=== PATIENT | female | born 1950 | race Caucasian/White ===

== ENCOUNTER 2021-12-11 14:00 | Outpatient (RCR) | payer MEDICARE, SELFPAY | END 2021-12-24 11:25 | disposition home or self-care (01) | LOC: HO.PTCHIC 14:00 | PROVIDERS: PCP Internal Medicine; Visit Provider Internal Medicine | DX: M54.50 Low back pain, unspecified (principal) | CPT/HCPCS: 97110; 97112; 97140; 97150; 97161; 97530 ==

== ENCOUNTER 2022-11-14 13:51 | Emergency (ER) | payer MEDICARE, SELFPAY ==
[2022-11-14 14:01] VITALS: BP 153/85; PULSE 99; RESP 16; TEMP 37.2; O2SAT 99; BMI 30.2
--- NOTE | 2022-11-14 14:01 | ED.EAR ---
HPI - Ear Problem General Chief complaint: Ear Problems Stated complaint: pressure/pain in ears Time Seen by Provider: 11/14/22 14:02 Source: patient, RN notes reviewed and old records reviewed Mode of arrival: ambulatory History of Present Illness HPI Narrative: 72-year-old female with no sig past medical history presenting to the ED complaining of bilateral ear pain/pressure x 2 days worse on the left. Denies known fever, chills, sore throat, cough, SOB, hearing loss, drainage from ear, recent swimming MD Complaint: ear pain Location: bilateral Related Data Home Medications Medication Instructions Recorded Confirmed amlodipine 5 mg tablet 5 mg PO DAILY 09/25/22 09/25/22 atorvastatin 20 mg tablet 20 mg PO DAILY 09/25/22 09/25/22 lisinopril 20 mg tablet 20 mg PO DAILY 09/25/22 09/25/22 metformin 750 mg tablet,extended 1,500 mg PO DAILY 09/25/22 09/25/22 release 24 hr Previous Rx's Medication Instructions Recorded erythromycin 5 mg/gram (0.5 %) eye 0.5 inch ophthalmic (eye) Q4H #3.5 09/25/22 ointment grams amoxicillin 875 mg-potassium 1 tab PO BID 7 days #14 tabs 11/14/22 clavulanate 125 mg tablet Allergies Allergy/AdvReac Type Severity Reaction Status Date / Time bee pollen [bee stings] Allergy Hives Verified 11/14/22 14:05 Review of Systems Review of Systems: Constitutional: No Fever, No Chills ENT/Mouth: + Ear Pain, No Nasal Congestion, No Sinus Pain, No Hoarseness, No sore throat, No Rhinorrhea, No Swallowing Difficulty Cardiovascular: No Chest Pain, No SOB Respiratory: No Cough, No Sputum, No Wheezing Gastrointestinal: No Nausea, No Vomiting, No Diarrhea, No Constipation, No Abdominal pain Musculoskeletal: No joint pain, No Myalgias, No Joint Swelling Skin: No Skin Lesions, No rash Neuro: No Weakness Yes all other systems are reviewed and are negative Constitutional: Constitutional: Reports as per [facility] Past Medical History Attestation statement: The following information was validated with the patient. Source: old records reviewed Physical Exam Vital Signs: Vital Signs: Last Vital Signs Temp 99 F 11/14/22 14:01 Pulse 99 11/14/22 14:01 Resp 16 11/14/22 14:01 BP 153/85 H 11/14/22 14:01 Pulse Ox 99 11/14/22 14:01 O2 Del Method Room Air 11/14/22 14:01 BMI result Body Mass Index 30.2 Const: General: cooperative, healthy appearing and no acute distress Orientation/consciousness: patient oriented x3 Limitations: no limitations HEENT: Head: Yes normal to inspection and Yes atraumatic Ears: hearing grossly normal bilaterally, external ears normal, mastoids normal and TM abnormal dull on the right and with fluid behind the TM on the left General nose exam: Normal external nose present Face and sinus: Yes normal facial exam Throat: Yes posterior oropharynx normal, Yes tonsils normal, Yes uvula midline, No peritonsillar mass, No uvula laterally displaced and No uvular edema Eyes: General: appearance normal, both eyes and all related structures EOM: EOMs intact bilaterally Neck: Neck: Yes normal visual inspection and Yes no meningeal signs Resp: Effort & Inspection: normal respiratory effort and no respiratory distress Auscultation: clear to auscultation bilaterally Cardio: Rate: regular rate Heart sounds: S1 normal heart sound present and S2 normal heart sound present : General: Yes no CVA tenderness Back/Spine/Pelvis: Back: no CVA tenderness Skin: Rashes: no rashes Wounds: no wounds Neuro: General: patient oriented x3, tone normal and no meningeal signs Gait exam (Neuro): Normal gait present Extrem: General: Yes normal to inspection Medical Decision Making Medical Decision Making MDM Narrative: 72-year-old female with no sig past medical history presenting to the ED complaining of bilateral ear pain/pressure x 2 days worse on the left. On exam vital signs stable, NAD, nontoxic appearing, right TM dull, left TM with fluid. Mastoids WNL. Oropharynx WNL. Concern for otitis media. Low suspicion for mastoiditis, chronic otitis externa, or [employer] Plan: P.o. antibiotics Please refer to course for remaining clinical decision making, interpretation of labs/imaging results, and discussions with consultants and/or family members. Differential Diagnosis Differential Diagnoses: The differential diagnosis associated with the presentation includes As above Lab Data [facility] Lab Attestation statement: I reviewed the patient's lab results. Radiology Impression Discussion of test interpretation with radiology: I have reviewed the radiologist's reading. External Record Review External record reviewed: Inpatient record, Office record, Outpatient record, Prior outpatient labs, Prior outpatient radiology, Primary care record and Outside ED record Tests considered The following testing was considered but not selected: As above Discharge Plan Discharge Clinical Impression: Otitis media Patient Disposition: Home, Self-Care Instructions: Ear Infection (ED) Additional Instructions: You have an internal ear infection Augmentin is an antibiotic please take prescribed If symptoms persist or worsen you develop hearing loss, fever unresolved medications or persistent/worsening pain return to the ED Follow-up with her doctor Prescriptions: New amoxicillin-pot clavulanate 875-125 mg tablet 1 tab PO BID 7 Days Qty: 14 0RF No Action metformin 750 mg tablet extended release 24 hr 1,500 mg PO DAILY lisinopril 20 mg tablet 20 mg PO DAILY amlodipine 5 mg tablet 5 mg PO DAILY atorvastatin 20 mg tablet 20 mg PO DAILY erythromycin 5 mg/gram (0.5 %) ointment 0.5 inch ophthalmic (eye) Q4H Qty: 3.5 1RF Referrals: Physician,Unknown J [Primary Care Provider] -
== END 2022-11-14 14:15 | disposition home or self-care (01) ==
LOC: HO.ED 14:09
PROVIDERS: Emergency Provider Emergency Medicine
DX: H66.92 Otitis media, unspecified, left ear (principal); H92.03 Otalgia, bilateral; Z79.899 Other long term (current) drug therapy
CPT/HCPCS: 99282; 99283

== ENCOUNTER 2023-02-05 22:17 | Emergency (ER) | payer MEDICARE, SELFPAY ==
[2023-02-05 22:19] VITALS: BP 170/83; PULSE 73; RESP 18; TEMP 36.6; O2SAT 96; BMI 32.6
--- NOTE | 2023-02-05 22:21 | ED.GENADULT ---
HPI - General Adult General Chief complaint: Skin/Abscess/Foreign Body Stated complaint: 10-15 small lumps inner thigh. painful Time Seen by Provider: 02/06/23 06:48 Source: patient Mode of arrival: ambulatory History of Present Illness HPI narrative: This is a 72-year-old female with history of venous varicosity and prior vein stripping/sclerosing a number of years ago who presents with tenderness to the left medial thigh and noted erythema along the vein. She denies any fevers or chills or any pain on standing or walking. Related Data Home Medications Medication Instructions Recorded Confirmed amlodipine 5 mg tablet 5 mg PO DAILY 09/25/22 09/25/22 atorvastatin 20 mg tablet 20 mg PO DAILY 09/25/22 09/25/22 lisinopril 20 mg tablet 20 mg PO DAILY 09/25/22 09/25/22 metformin 750 mg tablet,extended 1,500 mg PO DAILY 09/25/22 09/25/22 release 24 hr Previous Rx's Medication Instructions Recorded erythromycin 5 mg/gram (0.5 %) eye 0.5 inch ophthalmic (eye) Q4H #3.5 09/25/22 ointment grams amoxicillin 875 mg-potassium 1 tab PO BID 7 days #14 tabs 11/14/22 clavulanate 125 mg tablet Allergies Allergy/AdvReac Type Severity Reaction Status Date / Time bee pollen [bee stings] Allergy Hives Verified 11/14/22 14:05 Review of Systems Review of Systems: Pertinent positives and negatives as stated in HPI PMFSH Past Medical History Source: nursing notes reviewed Social History Social History Advance Directives: No Advance Directives Information Provided: Yes Physical Exam ED Vital Signs: Vital Signs - 24 hr 02/05/23 22:19 02/06/23 02:18 02/06/23 06:54 Temperature 97.9 F 97.6 F 98.1 F Pulse Rate 73 58 70 Respiratory Rate 18 17 18 Blood Pressure 170/83 H 150/74 H 149/68 H Pulse Oximetry 96 99 98 Oxygen Delivery Method Room Air Room Air Room Air BMI result Body Mass Index 32.6 VITAL SIGNS: Reviewed. GENERAL: Well developed, well nourished, in no acute distress. HEAD: Normocephalic/atraumatic EYES: PERRLA, EOMI LUNGS: Normal breath sounds. No adventitious sounds or accessory muscle use. SpO2<98> CARDIOVASCULAR: Regular rate and rhythm without noted murmurs, no JVD or lower extremity edema. ABDOMEN: Soft, non-tender, non-distended with bowel sounds. MUSCULOSKELETAL: No tenderness, deformities, or effusions noted on gross inspection. EXTREMITIES: No cyanosis, clubbing or edema; LEFT LOWER EXTREMITY: There is obvious varicosity the medial thigh vessel with dilation and slight erythema with tenderness on palpation SKIN: Inspection of the skin reveals no rashes NEUROLOGIC: Alert and oriented x 4. Strength and sensation to light touch were grossly intact x 4. Course Course Course Narrative: This is a rapid medical exam: Additional HPI, ROS, PE not included below will be deferred to primary provider. Patient is a 72-year-old female presenting to the emergency department with erythematous and tender varicose vein to left medial thigh. States she had a vascular procedure to this area approximately 3 years prior. Area is erythematous, firm and tender. Denies recent fevers. Denies chest pain or shortness of breath. Denies any other complaints. Plan: labs Medications Administered Discontinued Medications Generic Name Dose Route Start Last Admin Trade Name Freq PRN Reason Stop Dose Admin Acetaminophen 975 mg 02/06/23 07:11 02/06/23 07:22 Acetaminophen 325 Mg Tablet PO 02/06/23 07:12 975 mg ONCE ONE Administration Ibuprofen 400 mg 02/06/23 07:11 02/06/23 07:23 Ibuprofen 400 Mg Tablet PO 02/06/23 07:12 400 mg ONCE ONE Administration Medical Decision Making Medical Decision Making MDM Narrative: 72-year-old female with history and clinical presentation, DDX: Cellulitis, thrombophlebitis, no clinical suspicion for DVT. I reviewed all investigations and there is no leukocytosis left shift, no anemia or probable cytopenia, ESR is within normal limits and clinical findings are inconsistent with a cellulitis as the erythema tracks very specifically to the vein in question. Chemistry indices show no derangements electrolytes and no MEEK there is an elevated BUN of unclear significance as there are no prior laboratory testings to compare. CRP is within normal limits and once again this does not appear to be a vasculitis or cellulitis and given the distribution and appearance as well as history this is not consistent with a DVT. Patient was provided with instructions on compression dressing in addition to the use of NSAIDs for resolution of the superficial thrombophlebitis. She was also instructed follow-up with primary care provider on Wednesday morning. Differential Diagnosis Differential Diagnoses: The differential diagnosis associated with the presentation includes Please see the discussion above Admission/Observation Consideration of admission/observation: Escalation of care including admission/observation considered Please see the discussion above Lab Data MDM Lab Attestation statement: I reviewed the patient's lab results. Please see the discussion above 02/05/23 22:33 02/05/23 22:33 Labs: Lab Results 02/05/23 02/05/23 02/05/23 Range/Units 22:33 22:33 22:33 WBC 8.0 (4.8-10.8) X10*3/uL RBC 4.47 (4.20-5.50) X10*6/uL Hgb 12.7 (12.0-16.0) g/dl Hct 38.8 (37.0-47.0) % MCV 86.8 (80.0-98.0) fL MCH 28.4 (27.0-33.0) pg MCHC 32.7 (31.0-35.0) g/dl RDW 13.6 (11.0-16.0) % Plt Count 297 (160-400) X10*3/uL MPV 10.1 (9.4-12.3) fL Immature Gran % (Auto) 0.5 H (0.0-0.4) % Neut % (Auto) 50.1 (45-73) % Lymph % (Auto) 29.1 (20-40) % Mellette % (Auto) 7.2 (2-11) % Eos % (Auto) 12.4 H (0-4) % Baso % (Auto) 0.7 (0-2) % Lymph # (Auto) 2.3 (1.2-4.9) X10*3/uL Mellette # (Auto) 0.6 (0.1-1.2) X10*3/uL Eos # (Auto) 1.0 H (0.0-0.4) X10*3/uL Baso # (Auto) 0.1 (0.0-0.2) X10*3/uL Abs Immat Gran (auto) 0.04 H (0.00-0.03) X10*3/uL Absolute Neuts (auto) 4.0 (2.0-8.3) x10*3/uL Absolute Nucleated RBC 0.000 (0.0-0.012) X10*3/uL Nucleated RBC % (auto) 0.0 (0.0-0.2) /100WBC ESR 8 (0-20) MM/HR Sodium 140 (135-145) mmol/L Potassium 4.2 (3.3-5.1) mmol/L Chloride 106 (96-108) mmol/L Carbon Dioxide 19 L (22-29) mmol/L Anion Gap 19 (12-20) BUN 31 H (9-16) mg/dL Creatinine 1.18 (0.5-1.4) mg/dL Estim Creat Clear Calc 39.6 Estimated GFR 45 Random Glucose 153 H (60-115) mg/dL Calcium 9.4 (8.4-10.2) mg/dL C-Reactive Protein 0.22 (< or = 0.50) mg/dL Chronic Conditions Patient?s care impacted by: Diabetes Discharge Plan Discharge Clinical Impression: Thrombophlebitis Patient Disposition: Home, Self-Care Instructions: Superficial Thrombophlebitis (ED), How to Use an Elastic Bandage (ED) Additional Instructions: 1. Recommend Tylenol 1000 mg, orally, every 6 hours as needed for pain control. Do not exceed 4000 mg within 24 hours. 2. Ibuprofen 400 mg, orally with milk or food, every 6 hours as needed for pain control. 3. Please attempt to keep the Javier wrap in place as this will assist to completely resolve the thrombophlebitis. 4. Please follow-up with your primary care provider on Wednesday morning. Return to the ER for any worsening symptoms. Prescriptions: No Action amoxicillin-pot clavulanate 875-125 mg tablet 1 tab PO BID 7 Days Qty: 14 0RF metformin 750 mg tablet extended release 24 hr 1,500 mg PO DAILY lisinopril 20 mg tablet 20 mg PO DAILY amlodipine 5 mg tablet 5 mg PO DAILY atorvastatin 20 mg tablet 20 mg PO DAILY erythromycin 5 mg/gram (0.5 %) ointment 0.5 inch ophthalmic (eye) Q4H Qty: 3.5 1RF Referrals: EDGAR ADAMSON [Primary Care Provider] - Interventions: ED Discharge Assessment Last Done: 02/06/23 07:27 Discharge Date/Time: 02/06/23 07:28
[2023-02-05 22:40] LABS: Basophils Absolute Auto 0.1 X10*3/uL (0.0-0.2); Basophils Percent Auto 0.7 % (0-2); Eosinophils Percent Auto 12.4 % (0-4); Hematocrit 38.8 % (37.0-47.0); Hemoglobin 12.7 g/dl (12.0-16.0); Imm Gran Abs Auto 0.04 X10*3/uL (0.00-0.03); Imm Gran Pct Auto 0.5 % (0.0-0.4); Lymphocytes Absolute Auto 2.3 X10*3/uL (1.2-4.9); Lymphocytes Percent Auto 29.1 % (20-40); MANUAL DIFF FLAG NO; Mean Corpuscular HGB Conc 32.7 g/dl (31.0-35.0); Mean Corpuscular Hemoglobin 28.4 pg (27.0-33.0); Mean Corpuscular Volume 86.8 fL (80.0-98.0); Mean Platelet Volume 10.1 fL (9.4-12.3); Monocytes Absolute Auto 0.6 X10*3/uL (0.1-1.2); Monocytes Percent Auto 7.2 % (2-11); Neutrophils Percent Auto 50.1 % (45-73); Platelet Count 297 X10*3/uL (160-400); Red Blood Count 4.47 X10*6/uL (4.20-5.50); Red Cell Distribution Width 13.6 % (11.0-16.0)
[2023-02-05 22:57] LABS: Anion Gap 19 (12-20); Blood Urea Nitrogen 31 mg/dL (9-16); C Reactive Protein 0.22 mg/dL (< or = 0.50); Calcium 9.4 mg/dL (8.4-10.2); Carbon Dioxide 19 mmol/L (22-29); Chloride 106 mmol/L (96-108); Creatinine Clr Calc Pharmacy 39.6; Estimated Glomerular Filt Rate 45; Glucose Random 153 mg/dL (60-115); Potassium 4.2 mmol/L (3.3-5.1); Sodium 140 mmol/L (135-145)
[2023-02-05 23:17] LABS: Erythrocyte Sedimentation Rate 8 MM/HR (0-20)
[2023-02-06 02:18] VITALS: BP 150/74; PULSE 58; RESP 17; TEMP 36.4; O2SAT 99
[2023-02-06 06:54] VITALS: BP 149/68; PULSE 70; RESP 18; TEMP 36.7; O2SAT 98
[2023-02-06] MEDS: Acetaminophen 325 MG TABLET 975 MG PO (07:22)
[2023-02-06] MEDS: Ibuprofen 400 MG TABLET PO (07:23)
== END 2023-02-06 07:28 | disposition home or self-care (01) ==
PROVIDERS: Registered Nurse Emergency; Emergency Provider Student in an Organized Health Care Education/Training Program; PCP Internal Medicine
DX: I80.3 Phlebitis and thrombophlebitis of lower extremities, unspecified (principal); Z79.899 Other long term (current) drug therapy
CPT/HCPCS: 36415; 80048; 85025; 85652; 86140; 99283; 99284

== ENCOUNTER 2023-04-06 12:56 | Outpatient (AMB) | payer MEDICARE, SELFPAY ==
[2023-04-06 13:10] VITALS: BP 150/68; PULSE 78; TEMP 37.4; O2SAT 97; BMI 31.9
--- NOTE | 2023-04-06 13:10 | AM.OFFWIN_ITS ---
Intake Vital Signs 04/06/23 13:10 Height 5 ft 1 in Weight 169 lb BMI 31.9 BP 150/68 H Blood Pressure Location Rt brachial Position Sitting Pulse 78 Pulse Source Pulse Oximeter Temp 99.3 F Temp Source Temporal Artery Scan Pulse Oximetry (%) 97 Intake Visit Reasons: EP Flu like symptoms (masked) Intake Note: pt is here for c/o headache, pressure in bilateral ear, chills, cough. Patient Tobacco Use Status: Never used Tobacco Allergies bee pollen [bee stings] Allergy (Verified 04/06/23 13:44) Hives Medication List - Last Reconciled 04/06/23 by Venkat Giron MD amlodipine 5 mg PO DAILY atorvastatin 20 mg PO DAILY azithromycin take 500 mg today (day 1), then 250 mg for 4 days (days 2-5) PO codeine-guaifenesin 10-100 mg/5 mL 5 mL PO Q6H PRN lisinopril 20 mg PO DAILY metformin ER 1,500 mg PO DAILY Do you need a note to return to daycare/school/sports/work: Yes HPI EP Flu like symptoms (masked) HPI Details Patient presents for a sick visit. Reporting symptoms of sinus congestion, sore throat and difficulty swallowing. Low-grade fever. No family member is sick. No recent travel. Patient reports symptoms of malaise and fatigue. [facility] Social History Patient Tobacco Use Status: Never used Tobacco Physical Exam Vital Signs: Last Vital Signs Temp 99.3 F 04/06/23 13:10 Pulse 78 04/06/23 13:10 BP 150/68 H 04/06/23 13:10 Pulse Ox 97 04/06/23 13:10 BMI result Body Mass Index 31.9 Const General: cooperative and healthy appearing Nutritional Appearance: well nourished Orientation/consciousness: patient oriented x3 Limitations: no limitations HEENT Head: Yes normal to inspection Eyes General: appearance normal, both eyes and all related structures Neck Neck: Yes normal visual inspection Chest Chest palpation & inspection: normal palpation of entire chest wall Resp Effort & Inspection: normal respiratory effort Neuro General: patient oriented x3 Assessment & Plan Assessment & Plan (1) Upper respiratory tract infection: Code(s): J06.9 - Acute upper respiratory infection, unspecified Plan: Antibiotics ordered. Increase fluid intake. Tylenol for aches and pains. If symptoms worsen, follow-up here for a recheck. Will call with results of COVID. Medications: New codeine-guaifenesin 10-100 mg/5 mL 5 mL PO Q6H PRN 120 mL 0RF allergy symptoms azithromycin take 500 mg today (day 1), then 250 mg for 4 days (days 2-5) PO 6 tabs 0RF Coding Level of Care Code Est Pt Level 3 (18436) Diagnoses Upper respiratory tract infection J06.9
== END 2023-04-06 13:54 | disposition home or self-care (01) ==
PROVIDERS: PCP Internal Medicine; Visit Provider Internal Medicine
DX: J06.9 Acute upper respiratory infection, unspecified (principal)
CPT/HCPCS: 99213

== ENCOUNTER 2023-04-06 13:48 | Outpatient (REF) | payer MEDICARE, SELFPAY ==
[2023-04-06 17:39] LABS: Influenza A PCR NEGATIVE (Negative); Influenza B PCR NEGATIVE (Negative); Resp Syncy Virus RNA Qual PCR NEGATIVE (Negative); SARS COV2 PCR INHOUSE POSITIVE (Negative)
== END 2023-04-06 13:49 | disposition home or self-care (01) ==
LOC: HO.LAB 13:48
PROVIDERS: Visit Provider Internal Medicine
DX: Z20.822 Contact with and (suspected) exposure to COVID-19 (principal); R43.9 Unspecified disturbances of smell and taste
CPT/HCPCS: 0241U

== ENCOUNTER 2024-06-15 10:35 | Outpatient (AMB) | payer MEDICARE, SELFPAY ==
[2024-06-15 11:17] VITALS: BP 130/80; PULSE 60; O2SAT 99; BMI 28.0
--- NOTE | 2024-06-15 11:17 | AM.OFFWIN_ITS ---
Intake Vital Signs 06/15/24 11:17 Height 5 ft 2 in Weight 153 lb BMI 28.0 BP 130/80 Blood Pressure Location Rt brachial Position Sitting Pulse 60 Pulse Source Pulse Oximeter Pulse Oximetry (%) 99 Oxygen Delivery Method Room Air Intake Visit Reasons: EP-rt arm pain Intake Note: Patient here for right arm pain that happened last night while lifting herself off the couch. Patient Tobacco Use Status: Never used Tobacco Allergies bee pollen [bee stings] Allergy (Verified 06/15/24 11:18) Hives Do you need a note to return to daycare/school/sports/work: No HPI EP-rt arm pain HPI Details This note is constructed using voice recognition software. While every effort has been made to ensure accuracy, soap press feeder errors may have been included. The patient is a 73 year old female who presents to the clinic today with right forearm pain since yesterday after getting up from the couch and lifting the blanket to get out from underneath to cats. She reports that she took some Tylenol and has been able to continue functioning, able to flex her arm without difficulty or lift it above the head, however has pain when she pronates and supinates the right arm. She denies numbness or tingling in the hand, weakness. She is left-hand dominant. [facility] Social History Patient Tobacco Use Status: Never used Tobacco Review of Systems Const All systems reviewed & are unremarkable except as noted in HPI and below Physical Exam Vital Signs: Last Vital Signs Pulse 60 06/15/24 11:17 BP 130/80 06/15/24 11:17 Pulse Ox 99 06/15/24 11:17 Oxygen Delivery Method Room Air 06/15/24 11:17 BMI result Body Mass Index 28.0 Const General: cooperative, healthy appearing, comfortable, no acute distress and well developed Orientation/consciousness: patient oriented x3 Limitations: no limitations Resp Effort & Inspection: normal respiratory effort and able to speak in complete sentences Skin General skin exam: no rashes or lesions noted Neuro General: patient oriented x3 Extrem Other: No visible deformity, Right Forearm tenderness on pronation and supination, no areas tender to palpation. Flexion normal. Strength 5/5 and equal bilateral. Distal neurovascular exam intact. General: Yes normal to inspection Assessment & Plan Assessment & Plan (1) Muscle strain: Code(s): T14.8XXA - Other injury of unspecified body region, initial encounter Plan: Right forearm, we will try a short burst prednisone for anti-inflammatory effects as she is unable to tolerate NSAIDs. Given nature of injury, imaging not appropriate at this time. Advised continuation of acetaminophen. Javier wrap applied. Advised ice. Advised rest from work for today and from the gym. Advised follow up with worsening symptoms or failure to resolve. Plan See above for full details and plan. Medications: New prednisone 40 mg (2 x 20 mg) PO DAILY 3 days 6 tabs 0RF Coding Level of Care Code Est Pt Level 3 (20096) Diagnoses Muscle strain T14.8XXA
--- OUTSIDE RECORDS SUMMARY | 2024-06-21 01:38 | XMS_ITS | Continuity of Care Document ---
Author Organization [facility] Address [address] [place] [address] Phone Care Team Providers Care Review Manager Name Role Phone Jeremias BOONE, RVT, HIEN, Gigi Unavailable U navailable Allergies, Adverse Reactions, Alerts Substance Reaction Status Criticality No Known Allergies Active No Inform ation Medications Medication Instructions Dosage Effective Dates (start - stop) Status Comments oxycodone 5 mg tablet take 1 tablet by oral route every 4 hours as needed as needed for Pain 5 MG - Active Xarelto 20 mg tablet take 1 tablet by oral route every day with the evening meal 20 MG - Active METFORMIN HCL (unknown strength) Not Available - Active AMLODIPINE BESYLATE (unknown strength) Not Available - Active ATORVASTATIN CALCIUM (unknown strength) Not Available - Active LISINOPRIL (unknown strength) Not Available - Active Procedures Procedure Date Duplex Scan-extrem Veins; Uni/ CT & [place] N Inj Scleros Solut; Mx Veins 1- CT & MA N Ultrason Guidan Needle Bx-rad- CT & MA N Punct Aspir Absces/hemat/bulla 24 Office/Outpt E&M Established 15 Mins- CT & MA Duplex Scan-extrem Veins; Uni/ CT & MA O Duplex Scan-extrem Veins; Uni/ CT & MA S Ultrason Guidan Needle Bx-rad- CT & MA S Inj Sclerosing Solution; Sngl- CT & MA S Office/Outpt E&M Established 15 Mins- CT & MA Duplex Scan-extrem Veins; Uni/ CT & MA A No Charge For Services No Charge For Services Sngl/mx Inj Scleros-veins; Rachel Office/Outpt E&M Established 15 Mins- CT & MA Office/Outpt E&M Established 15 Mins Sep Office/Outpt E&M Established 25 Mins Jul Duplex Scan-extrem Veins; Comp Phleb Veins - Extrem 20+ Duplex Scan-extrem Veins; Uni/ 23 Varithena, Single Truncal Vein Endovenous Laser, 1st Vein Phleb Veins - Extrem 20+ Inj Scleros Solut; Mx Veins 1 Duplex Scan-extrem Veins; Uni/ Varithena, Single Truncal Vein 23 Endovenous Laser, 1st Vein Office/Outpt E&M Established 25 Mins Jun Duplex Scan-extrem Veins; Uni/ Office/Outpt E&M Established 15 Mins Apr Duplex Scan-extrem Veins; Uni/ Office/Outpt E&M Established 15 Mins Mar Duplex Scan-extrem Veins; Comp Office/Oupt E&M New Pt 30 Mins Advance Directives Directive Yes / No Effective Date File Name No Information Encounters Encounter Description Practice Location Reason(s) For Visit Diagnoses Date Provider Providers Copied on Encounter [facility], [address], [place], [id number], [place] tel:[phone] [facility] Encounter for follow-up examination after completed treatment for conditions other than malignant neoplasmVarico se veins of left lower extremity with pain 4 Jeremias BOONE RVT, RPVI Robert. [address] [place] [address], [place], [id number], [place]. tel:[phone] Referring Provider: Jon Lr DO, [address] [place] [address], [id number]. tel:[phone] [facility], [address] [place] [address] Dr Val[address]Suite [place], [id number], [place] tel:[phone] [facility] [place] Varicose veins of left lower extremity with inflammationPh lebitis and thrombophlebit is of superficial vessels of left lower extremity 4 Channing Montgomery. [address] [place] [address], [place], [id number], [place]. tel:[phone] Referring Provider: Jon Lr DO, [address] [place] [address], [facility]. tel:[phone] Office/Outpt E&M Established 15 Mins- CT & [facility], [address] [place] [address] Dr Valdez [address]Suite [place], [id number], [place] tel:[phone] [facility] Varicose veins of left lower extremity with other complicationsT ype 2 diabetes mellitus without complicationsE ssential (primary) hypertension Apr- 4 Jeremias BOONE RVT, RPVI Robert. [address] [place] [address], [place], [id number], [place]. tel:[phone] Referring Provider: Jon Lr DO, [address] [place] [address], [facility]. tel:[phone] [facility], [address] [place] [address] Dr Valdez [address]Suite [place], [id number], [place] tel:[phone] [facility] [place] Chronic venous hypertension (idiopathic) with other complications of left lower extremity 4 Jeremias BOONE RVT, RPVI Robert. [address] [place] [address], [place], [id number], [place]. tel:[phone] Referring Provider: Jon Lr DO, [address] [place] [address], [address]. tel:[phone] [facility], [address] [place] [address] Dr Valdez 1000[address] 1000[place], [id number], [place] tel:[phone] [facility] [place] Encounter for follow-up examination after completed treatment for conditions other than malignant neoplasmPain in left leg Mar- 4 Jeremias BOONE RVT, HIEN Yu. [address] [place] [address], [place] [address], [place], [id number], [place]. tel:[phone] Referring Provider: Jon Lr DO, [address] [place] [address], [facility]. tel:[phone] [facility], [address] [place] [address] Dr Valdez [address] 1000[place], [id number], [place] tel:[phone] [facility] Varicose veins of left lower extremity with other complications Mar- 4 Channing Montgomery. [address] [place] [address], [place] [address], [place], [id number], [place]. tel:[phone] Referring Provider: Jon Lr DO, [address] [place] [address], [facility]. tel:[phone] Office/Outpt E&M Established 15 Mins- CT & VICK [facility], [address] [place] [address] Dr [address] 1000[place], [id number], [place] tel:[phone] CVR - [facility] Varicose veins of left lower extremity with other complicationsL ymphedema, not elsewhere classifiedNevu s, non-neoplastic Aug 4 Jeremias BOONE RVT, HIEN Yu. [facility], [address], [place], [id number], [place]. tel:[phone] Referring Provider: Jon Lr DO, [address] [place] [address], [address]. tel:[phone] [facility], [address] [place] [address] Dr [address] 1000[place], [id number], [place] tel:[phone] [facility] [place] Varicose veins of left lower extremity with painEdema, unspecified 4 Jeremias BOONE, ZAC, HIEN Yu. [address] [place] [address], [facility] [place], [id number], [place]. tel:[phone] Referring Provider: Jon Lr DO, [address] [place] [address], [facility]. tel:[phone] [facility], [address] [place] [address] Dr [address] 1000[address] 1000[place], [id number], [place] tel:[phone] [facility] [place] Varicose veins of left lower extremity with painNevus, non-neoplastic 4 Jeremias BOONE, ZAC, HIEN Yu. [address] [place] [address], [facility] [place], [id number], [place]. tel:[phone] Referring Provider: Jon Lr DO, [address] [place] [address], [facility]. tel:[phone] [facility], [address] [place] [address] Dr Valdez 1000[address] 1000[place], [id number], [place] tel:[phone] [facility] [place] Nevus, non-neoplastic 4 Channing Montgomery. [address] [place] [address], [facility] [place], [id number], [place]. tel:[phone] Referring Provider: Jon Lr DO, [address] [place] [address], [facility]. tel:[phone] [facility], [address] [place] [address] Dr [address] 1000[address] 1000[place], [id number], tel:[phone] [facility] [place] Nevus, non-neoplastic 4 Mollmelania Montgomery. [address] [place] [address], [place], [place], [id number], [place]. tel:[phone] Referring Provider: Jon Lr DO, [address] [place] [address], [facility]. tel:[phone] Office/Outpt E&M Established 15 Mins- [place] & [place] [facility], [address] [place] [address] Dr Valdez 1000SuIngris brennan [place], [id number], [place] tel:[phone] [facility] hypertension (idiopathic) with other complications of bilateral lower extremityLymph edema, not elsewhere classifiedNevu s, non-neoplastic Oct-0 4 Jeremias BOONE RVT, RPVI Robert. [address] [place] [address], [place], [place], [id number], [place]. tel:[phone] Referring Provider: Jon Lr DO, [address] [place] [address], [facility]. tel:[phone] Office/Outpt E&M Established 15 Mins [facility], [address] [place] [address] Dr Valdez 1000[place], [id number], [place] tel:[phone] [facility] venous hypertension (idiopathic) with other complications of bilateral lower extremityEssen tial (primary) hypertension 0 4 Jeremias BOONE RVT, RPVI Robert. [address] [place] [address], [place], [place], [id number], [place]. tel:[phone] Referring Provider: Jon Lr DO, [address] [place] [address], [facility]. tel:[phone] Office/Outpt E&M Established 25 Mins [facility], [address] [place] [address] Dr [address] 1000[place], [id number], [place] tel:[phone] [facility] Venous insufficiency (chronic) (peripheral)Ty pe 2 diabetes mellitus without complicationsE ssential (primary) hypertensionNe vus, non-neoplastic 2 4 Jeremias BOONE RVT, RPVI Robert. [address] [place] [address], [place], [id number], [place]. tel:[phone] Referring Provider: Jon Lr DO, [address] [place] [address], [address]. tel:[phone] [facility], [address] [place] [address] Dr Valdez 1000Suite 1000[place], [id number], [place] tel:[phone] CV[facility] - [facility] Encounter for follow-up examination after completed treatment for conditions other than malignant neVaricose veins of bilateral lower extremities with pain Jul-2 4 Jeremias BOONE RVT, HIEN Yu. [address] [place] [address], [place], [id number], [place]. tel:[phone] Referring Provider: Jon Lr DO, [address] [place] [address], [facility]. tel:[phone] [facility], [address] [place] [address] [facility] [address], [id number], [place] tel:[phone] [facility] Varicose veins of left lower extremity with other complications Jul-0 4 Channing Montgomery. [address] [place] [address], [place], [id number], [place]. tel:[phone] Referring Provider: Jon Lr DO, [address] [place] [address], [facility]. tel:[phone] [facility], [address] [place] [address] Dr Valdez 1000Suite 1000[place], [id number], [place] tel:[phone] CV[facility] - [facility] Encounter for follow-up examination after completed treatment for conditions other than malignant neVaricose veins of left lower extremity with pain 3 Jeremias BOONE RVT, HIEN Yu. [address] [place] [address], [place], [id number], [place]. tel:[phone] Referring Provider: Jon Lr DO, [address] [place] [address], [address]. tel:[phone] [facility], [address] [place] [address] Dr Valdez 1000Suite 1000[place], [id number], [place] tel:[phone] [facility] [place] Chronic venous hypertension (idiopathic) with inflammation of left lower extremity 3 Jeremias BOONE, KVNGT, HIEN Yu. [address] [place] [address], [facility] [place], [id number], [place]. tel:[phone] Referring Provider: Jon Lr DO, [address] [place] [address], [address]. tel:[phone] [facility], [address] [place] [address] Dr Valdez 1000Suite 1000[place], [id number], [place] tel:[phone] [facility] - [facility] Varicose veins of left lower extremity with other complications 3 Jeremias BOONE, KVNGT, HIEN Yu. [address] [place] [address], [place], [id number], [place]. tel:[phone] Referring Provider: Jon Lr DO, [address] [place] [address], [address]. tel:[phone] [facility], [address] [place] [address] Dr Valdez 1000Suite [place], [id number], [place] tel:[phone] [facility] - [facility] Varicose veins of right lower extremity with other complications 3 India Guerrero. [address] [place] [address], [place], [id number], [place]. tel:[phone] Referring Provider: Jon Lr DO, [address] [place] [address], [address]. tel:[phone] [facility], [address] [place] [address] Dr Valdez 1000Suite 1000[place], [id number], [place] tel:[phone] [facility] [place] Encounter for follow-up examination after completed treatment for conditions other than malignant neVaricose veins of right lower extremity with pain 3 Naun BOONE FACS RVT HIEN [place]. [facility], [facility] [address], [place], [address], [place]. tel:[phone] Referring Provider: Jon Lr DO, [address] [place] [address], [facility]. tel:[phone] [facility], [address] [place] [address] Dr Valdez 1000Suite 1000[place], [id number], [place] tel:[phone] [facility] [place] Varicose veins of right lower extremity with other complications 3 Jeremias BOONE, RVT, HIEN Yu. [address] [place] [address], [place], [id number], [place]. tel:[phone] Referring Provider: Jno Lr DO, [address] [place] [address], [facility]. tel:[phone] [facility], [address] [place] [address] [address] 1000[place], [id number], [place] tel:[phone] [facility] - [facility] Chronic venous hypertension (idiopathic) with inflammation of right lower extremity 3 Jeremias BOONE, RVT, HIEN Yu. [address] [place] [address], [place], [id number], [place]. tel:[phone] Referring Provider: Jon Lr DO, [address] [place] [address], [facility]. tel:[phone] Office/Outpt E&M Established 25 Mins [facility], [address] [place] [address] Dr Valdez 1000Suite 1000[place], [id number], [place] tel:[phone] [facility] Chronic venous hypertension (idiopathic) with other complications of bilateral lower extremityPhleb itis and thrombophlebit is of unspecified deep vessels of left lower extremity 3 Channing Montgomery. [facility], [address], [place], [id number], [place]. tel:[phone] Referring Provider: Jon Lr DO [address] [place] [address], [address]. tel:[phone] [facility], [address] [place] [address] Dr Val[address] 1000[place], [id number], [place] tel:[phone] [facility] [place] Chronic venous hypertension (idiopathic) with other complications of left lower extremity 3 Naun Mederos. [address] [place] [address], [place], [address], [place]. tel:[phone] Referring Provider: Jon Lr DO, [address] [place] [address], [address]. tel:[phone] Office/Outpt E&M Established 15 Mins [facility], [address] [place] [address] [address] [place], [place] [address], [id number], [place] tel:[phone] [facility] - [facility] Chronic venous hypertension (idiopathic) with other complications of bilateral lower extremityPhleb itis and thrombophlebit is of superficial vessels of left lower extremity Apr- 3 Naun Mederos. [address] [place] [address], [facility] [place], [address], [place]. tel:[phone] Referring Provider: Jon Lr DO, [address] [place] [address], [address]. tel:[phone] [facility], [address] [place] [address] Dr Valdez [address] [address], [id number], [place] tel:[phone] [facility] - [facility] Phlebitis and thrombophlebit is of superficial vessels of left lower extremity Apr- 3 Naun Mederos. [address] [place] [address], [facility] [place], [address], [place]. tel:[phone] Referring Provider: Jon Lr DO, [address] [place] [address], [address]. tel:[phone] Office/Outpt E&M Established 15 Mins [facility], [address] [place] [address] [address], [place], [id number], [place] tel:[phone] [facility]R - [facility] Chronic venous htn w oth comp of bilateral low extrmPhlebitis and thombophlb of superfic vessels of l low extrem Sep-0 3 Naun BOONE FACS Gaurav Mederos. [address] [place] [address], [place], [address], [place]. tel:[phone] Referring Provider: Jon Lr DO, [address] [place] [address], [facility]. tel:[phone] [facility], [address] [place] [address] Dr [address] [place] [address], [place], [id number], tel:[phone] [facility] Varicose veins of bilateral lower extremities with pain Sep-0 3 Naun BOONE FACS Gaurav Mederos. [address] [place] [address], [place], [address], [place]. tel:[phone] Referring Provider: Jon Lr DO, [address] [place] [address], [facility]. tel:[phone] Office/Oupt E&M New Pt 30 Mins [facility], [address] [place] [address] Dr Val[address] [address], [place], [id number], tel:[phone] [facility] Chronic venous htn w oth comp of bilateral low extrmPhlebitis and thombophlb of superfic vessels of l low extremLocalize d edemaType 2 diabetes mellitus without complicationsR estless legs syndromeEssent ial (primary) hypertensionPr uritus, unspecifiedCra mp and spasm 3 Naun BOONE FACS Gaurav Mederos. [address] [place] [address], [place], [address], [place]. tel:[phone] Referring Provider: Jon Lr DO, [address] [place] [address], [facility]. tel:[phone] Family History Family Member Type Diagnosis Age At Onset No Information Payers Payer name Insurance type Covered republican ID Authoriza tijeremy(s) Medicare VICK KO [id number] Social History Type Description Quantity Date Captured Comments Sex Female Smoking Status No Information Chief Complaint And Reason For Visit No Information Reason For Referral Reason For Referral No Information Plan Of Treatment Date Type Action Status Goal Diet education completed Goal Diet education completed Goal Diet education completed Goal Diet education completed Goal Diet education completed Goal Tobacco cessation counseling completed Goal Tobacco cessation counseling completed Goal Tobacco cessation counseling completed Goal Diet education completed Referral Ordered: Weight management: Referral to physician timeframe: 3 Months (related to Body mass index (BMI) 30.0-30.9, adult) ordered Referral Ordered: Weight management: Referral to physician timeframe: 3 Months (related to Body mass index (BMI) 30.0-30.9, adult) ordered Referral Ordered: Weight management: Referral to physician timeframe: 3 Months (related to Body mass index (BMI) 30.0-30.9, adult) ordered Referral Ordered: Weight management: Referral to physician timeframe: 3 Months (related to Body mass index (BMI) 30.0-30.9, adult) ordered Referral Ordered: Weight management: Referral to physician timeframe: 3 Months (related to Body mass index (BMI) 30.0-30.9, adult) ordered Referral Ordered: Weight management: Referral to physician timeframe: 3 Months (related to Body mass index (BMI) 30.0-30.9, adult) ordered Appointment Leeann Shin BOOKED Appointment Leeann Shin BOOKED History Of Present Illness Encounter Date Complaint History Of Prese nt Illness No Information Functional Status Date Functional Assessmen t No Information Instructions Date Instruction Additional Infor mation Lifestyle education Related to B troy mass index (BMI) 30.0-30.9, adult Giving Encouragement to exercise Related to Body mass index (BMI) 30.0-30.9, adult Diet education Related to Body mass index (BMI) 30.0-30.9, adult Pre and post instruc tions reviewed and provided Related to Varicose veins of left lower extremity with other complications Patient education booklet given Related to Varicose veins of left lower extremity with other complications Pre and post instruc tions reviewed and provided Related to Varicose veins of left lower extremity with other complications Patient education booklet given Related to Varicose veins of left lower extremity with other complications Lifestyle education Related to B troy mass index (BMI) 30.0-30.9, adult Giving Encouragement to exercise Related to Body mass index (BMI) 30.0-30.9, adult Diet education Related to Body mass index (BMI) 30.0-30.9, adult Pre and post instruc tions reviewed and provided Related to Chronic venous hypertension (idiopathic) with other complications of bilateral lower extremity Lifestyle education Related to B troy mass index (BMI) 30.0-30.9, adult Giving Encouragement to exercise Related to Body mass index (BMI) 30.0-30.9, adult Diet education Related to Body mass index (BMI) 30.0-30.9, adult Lifestyle education Related to B troy mass index (BMI) 30.0-30.9, adult Diet education Related to Body mass index (BMI) 30.0-30.9, adult Patient education booklet given Related to Chronic venous hypertension (idiopathic) with other complications of bilateral lower extremity Giving Encouragement to exercise Related to Body mass index (BMI) 30.0-30.9, adult Compression stocking usage as conservative measure Related to Venous insufficiency (chronic) (peripheral) Pre and post instruc tions reviewed and provided Related to Venous insufficiency (chronic) (peripheral) Lifestyle education Related to B troy mass index (BMI) 30.0-30.9, adult Giving Encouragement to exercise Related to Body mass index (BMI) 30.0-30.9, adult Diet education Related to Body mass index (BMI) 30.0-30.9, adult Patient education booklet given Related to Chronic venous htn w oth comp of bilateral low extrm Compression stocking usage as conservative measure Related to Chronic venous htn w oth comp of bilateral low extrm Lifestyle education Related to B troy mass index (BMI) 30.0-30.9, adult Giving Encouragement to exercise Related to Body mass index (BMI) 30.0-30.9, adult Diet education Related to Body mass index (BMI) 30.0-30.9, adult Assessments Type Assessment Date No Information Patient Care Teams Name Effective Dates (start - stop) Status Members No Information
== END 2024-06-15 12:33 | disposition home or self-care (01) ==
PROVIDERS: PCP Internal Medicine; Visit Provider Registered Nurse
DX: T14.8XXA Other injury of unspecified body region, initial encounter (principal)

== ENCOUNTER → 2024-06-15 10:35 | Outpatient (BNVA) | payer MEDICARE, SELFPAY | PROVIDERS: PCP Internal Medicine; Visit Provider Registered Nurse | DX: M79.601 Pain in right arm (principal) | CPT/HCPCS: 99212 ==

== ENCOUNTER 2025-03-10 09:32 | Outpatient (REF) | payer MEDICARE, SELFPAY ==
--- OUTSIDE RECORDS SUMMARY | 2024-08-15 06:30 | XMS_ITS | Continuity of Care Document ---
Author Organization [facility] Address [address] [place] [address] Phone Care Team Providers Care Document Advisor Name Role Phone Jeremias BOONE, RVT, HIEN, [...] Not Available - Active Procedures Procedure Date No Charge For Services Office/Outpt E&M Established 15 Mins Aug Duplex Scan-extrem Veins; Comp- CT & [place] Duplex Scan-extrem Veins; Uni/ CT & [place] D Inj Scleros Solut; Mx Veins 1- CT & [place] D Ultrason Guidan Needle Bx-rad- CT & MA D Office/Outpt E&M Established 15 Mins- CT & [place] Duplex Scan-extrem Veins; Uni/ CT & MA D ec-18-2024 Duplex Scan-extrem Veins; Uni/ CT & [place] N Inj Scleros Solut; Mx Veins 1- CT & MA N Ultrason Guidan Needle Bx-rad- CT & MA N Punct Aspir Absces/hemat/bulla Office/Outpt E&M Established 15 Mins- CT & [...] - Extrem 20+ Duplex Scan-extrem Veins; Uni/ Varithena, Single Truncal Vein 23 Endovenous Laser, 1st Vein Phleb Veins - Extrem 20+ Inj Scleros Solut; Mx Veins 1 Duplex Scan-extrem Veins; Uni/ Varithena, Single Truncal Vein Endovenous Laser, 1st Vein Office/Outpt E&M Established [...] Diagnoses Date Provider Providers Copied on Encounter Office/Outpt E&M Established 15 Mins [facility], [address] [place] [address] Dr Valdez [address] [address], [id number], tel:[phone] [facility] Chronic venous hypertension (idiopathic) with other complications of bilateral lower extremity Feb-0 - 5 Jeremias BOONE RVT, RPVI Robert. [address] [place] [address], [id number], [place]. tel:[phone] Referring Provider: Jon Lr DO, [address] [place] [address], [facility]. tel:[phone] [facility] [place], [address] [place] [address] Dr Valdez [address] [address], [id number], tel:[phone] [facility] Chronic venous hypertension (idiopathic) with other complications of bilateral lower extremity Feb-0 5 Jeremias BOONE RVT, RPVI Robert. [address] [place] [address], [place], [place], [id number], . tel:[phone] Referring Provider: Jon Lr DO, [address] [place] [address], [facility]. tel:[phone] [facility] [place], [address] [place] [address] Dr Valdez [address] [address], [id number], tel:[phone] [facility] Encounter for follow-up examination after completed treatment for conditions other than malignant neoplasmVarico se veins of left lower extremity with pain Dec- 4 Raina Day. [address], [address], [place], [place], [id number], [place]. tel:[phone] Referring Provider: Jon Lr DO, [address] [place] [address], [facility]. tel:[phone] [facility], [address] [place] [address] Dr Valdez [address], [id number], [place] tel:[phone] [place] Varicose veins of left lower extremity with other complications Jun- 4 Channing Montgomery. [address] [place] [address], [place], [place], [id number], [place]. tel:[phone] Referring Provider: Jon Lr DO, [address] [place] [address], [facility]. tel:[phone] Office/Outpt E&M Established 15 Mins- CT & [facility], [address] [place] [address] Dr Valdez [address], [id number], [place] tel:[phone] CVR - [facility] Chronic venous hypertension (idiopathic) with other complications of bilateral lower extremity Jun- 4 Jeremias BOONE, ZAC, HIEN Yu. [address] [place] [address], [facility] [place], [id number], [place]. tel:[phone] Referring Provider: Jon Lr DO, [address] [place] [address], [facility]. tel:[phone] [facility], [address] [place] [address] Dr Valdez [address], [id number], [place] tel:[phone] [facility] Chronic venous hypertension (idiopathic) with other complications of left lower extremity Jun- 4 Jeremias BOONE RVT, HIEN Yu. [address] [place] [address], [facility] [place], [id number], [place]. tel:[phone] Referring Provider: Jon Lr DO, [address] [place] [address], [facility]. tel:[phone] [facility], [address] [place] [address] Dr Valdez [address], [id number], [place] tel:[phone] R - [facility] Encounter for follow-up examination after completed treatment for conditions other than malignant neoplasmVarico se veins of left lower extremity with pain 4 Jeremias BOONE RVT, HIEN Yu. [address] [place] [address], [place], [id number], [place]. tel:[phone] Referring Provider: Jon Lr DO, [address] [place] [address], [facility]. tel:[phone] [facility], [address] [place] [address] Dr Valdez 1000[facility] [place], [id number], [place] tel:[phone] CVR [facility] Varicose veins of left lower extremity with inflammationPh lebitis and thrombophlebit is of superficial vessels of left lower extremity 4 Channing Montgomery. [address] [place] [address], [place], [id number], [place]. tel:[phone] Referring Provider: Jon Lr DO, [address] [place] [address], [facility]. tel:[phone] Office/Outpt E&M Established 15 Mins- [place] & [place] [facility], [address] [place] [address] Dr Valdez 1000[address] 1000[place], [id number], [place] tel:[phone] CVR [facility] Varicose veins of left lower extremity with other complicationsT ype 2 diabetes mellitus without complicationsE ssential (primary) hypertension 4 Jeremias BOONE RVT, HIEN Yu. [address] [place] [address], [place], [id number], [place]. tel:[phone] Referring Provider: Jon Lr DO, [address] [place] [address], [facility]. tel:[phone] [facility], [address] [place] [address] Dr Valdez [address], [id number], [place] tel:[phone] CVR - [facility] Chronic venous hypertension (idiopathic) with other complications of left lower extremity Oct-2 4 Jeremias BOONE RVT, HIEN Yu. [address] [place] [address], [place], [id number], [place]. tel:[phone] Referring Provider: Jon Lr DO, [address] [place] [address], [facility]. tel:[phone] [place] [facility], [address] [place] [address] Dr Valdez 1000Suite [place], [id number], [place] tel:[phone] CVR - [facility] Encounter for follow-up examination after completed treatment for conditions other than malignant neoplasmPain in left leg Sep- 4 Jeremias BOONE RVT, HIEN Yu. [address] [place] [address], [place], [id number], [place]. tel:[phone] Referring Provider: Jon Lr DO, [address] [place] [address], [facility]. tel:[phone] [facility], [address] [place] [address] Dr Valdez 1000Su[place], [id number], [place] tel:[phone] CVR [facility] Varicose veins of left lower extremity with other complications Sep- 4 Channing Montgomery. [address] [place] [address], [place], [id number], [place]. tel:[phone] Referring Provider: Jon Lr DO, [address] [place] [address], [facility]. tel:[phone] Office/Outpt E&M Established 15 Mins- CT & [place] [facility] [place], [address] [place] [address] Dr Valdez 1000Su[place], [id number], [place] tel:[phone] CVR - [facility] Varicose veins of left lower extremity with other complicationsL ymphedema, not elsewhere classifiedNevu s, non-neoplastic 4 Jeremias BOONE RVT, HIEN Yu. [address] [place] [address], [place] [address], [facility] [place], [id number], [place]. tel:[phone] Referring Provider: Jon Lr DO, [address] [place] [address], [address]. tel:[phone] [facility], [address] [place] [address] [facility] [address] 1000[place], [id number], [place] tel:[phone] [facility] Varicose veins of left lower extremity with painEdema, unspecified 4 Jeremias BOONE RVT, HIEN Yu. [address] [place] [address], [place], [id number], [place]. tel:[phone] Referring Provider: Jon Lr DO, [address] [place] [address], [facility]. tel:[phone] [facility], [address] [place] [address] Dr Valdez [address] 1000[place], [id number], [place] tel:[phone] [facility] Varicose veins of left lower extremity with painNevus, non-neoplastic 4 Jeremias BONOE RVT, HIEN Yu. [address] [place] [address], [facility] [place], [id number], [place]. tel:[phone] Referring Provider: Jon Lr DO, [address] [place] [address], [address]. tel:[phone] [facility], [address] [place] [address] Dr Valdez [address] 1000[place], [id number], [place] tel:[phone] [facility] Nevus, non-neoplastic 4 Channing Montgomery. [facility], [place] [address], [place], [id number], [place]. tel:[phone] Referring Provider: Jon Lr DO, [address] [place] [address], [address]. tel:[phone] [facility], [address] [place] [address] Dr Valdez 1000[address] 1000[place], [id number], [place] tel:[phone] CVR - [facility] Nevus, non-neoplastic 4 Mollmelania Montgomery. [address] [place] [address], [facility] [place], [id number], [place]. tel:[phone] Referring Provider: Jon Lr DO, [address] [place] [address], [facility]. tel:[phone] Office/Outpt E&M Established 15 Mins- CT & [place] [facility], [address] [place] [address] Dr Valdez [address] 1000[place], [id number], [place] tel:[phone] CVR - [facility] Chronic venous hypertension (idiopathic) with other complications of bilateral lower extremityLymph edema, not elsewhere classifiedNevu s, non-neoplastic 4 Jeremias BOONE RVT, HIEN Yu. [address] [place] [address], [facility] [place], [id number], [place]. tel:[phone] Referring Provider: Jon Lr DO, [address] [place] [address], [facility]. tel:[phone] Office/Outpt E&M Established 15 Mins [facility], [address] [place] [address] Dr Valdez 1000[address] 1000[place], [id number], [place] tel:[phone] CVR [facility] Chronic venous hypertension (idiopathic) with other complications of bilateral lower extremityEssen tial (primary) hypertension 4 Jeremias BOONE RVT, HIEN Yu. [address] [place] [address], [facility] [place], [id number], [place]. tel:[phone] Referring Provider: Jon Lr DO, [address] [place] [address], [facility]. tel:[phone] Office/Outpt E&M Established 25 Mins [facility], [address] [place] [address] Dr Valdez [address] [place], [id number], [place] tel:[phone] CVR - [facility] Venous insufficiency (chronic) (peripheral)Ty pe 2 diabetes mellitus without complicationsE ssential (primary) hypertensionNe vus, non-neoplastic 4 Jeremias BOONE RVT, HIEN Yu. [address] [place] [address], [place], [id number], [place]. tel:[phone] Referring Provider: Jon Lr DO, [address] [place] [address], [address]. tel:[phone] [facility], [address] [place] [address] Dr Valdez [address] [place], [id number], [place] tel:[phone] CVR - [facility] Encounter for follow-up examination after completed treatment for conditions other than malignant neVaricose veins of bilateral lower extremities with pain 4 Jeremias BOONE RVT, HIEN Yu. [address] [place] [address], [place], [id number], [place]. tel:[phone] Referring Provider: Jon Lr DO, [address] [place] [address], [address]. tel:[phone] [facility], [address] [place] [address] Dr Valdez 1000Su[place], [id number], [place] tel:[phone] CVR - [facility] Varicose veins of left lower extremity with other complications 4 Channing Montgomery. [address] [place] [address], [place], [id number], [place]. tel:[phone] Referring Provider: Jon Lr DO, [address] [place] [address], [address]. tel:[phone] [facility], [address] [place] [address] Dr Valdez 1000Suite [place], [id number], [place] tel:[phone] CVR - [facility] Encounter for follow-up examination after completed treatment for conditions other than malignant neVaricose veins of left lower extremity with pain Jun- 3 Jeremias BOONE RVT, HIEN Yu. [address] [place] [address], [place], [id number], [place]. tel:[phone] Referring Provider: Jon Lr DO, [address] [place] [address], [address]. tel:[phone] [facility], [address] [place] [address] [facility] 1000Suite 1000[place], [id number], [place] tel:[phone] [place] Chronic venous hypertension (idiopathic) with inflammation of left lower extremity Jun- 3 Jeermias BOONE RVT, HIEN Yu. [address] [place] [address], [place], [id number], [place]. tel:[phone] Referring Provider: Jon Lr DO, [address] [place] [address], [facility]. tel:[phone] [facility], [address] [place] [address] Dr Valdez 1000Suite 1000[place], [id number], [place] tel:[phone] [facility] Varicose veins of left lower extremity with other complications 3 Jeremias BOONE RVT, HIEN Yu. [address] [place] [address], [place], [id number], [place]. tel:[phone] Referring Provider: Jon Lr DO, [address] [place] [address], [facility]. tel:[phone] [facility], [address] [place] [address] Dr Valdez 1000[address] 1000[place], [id number], [place] tel:[phone] [facility] Varicose veins of right lower extremity with other complications 3 India Guerrero. [facility] [address] [facility], [place], [id number], [place]. tel:[phone] Referring Provider: Jon Lr DO, [address] [place] [address], [address]. tel:[phone] [place] [facility], [address] [place] [address] Dr Valdez 1000[address] 1000[place], [id number], [place] tel:[phone] CVR - [facility] Encounter for follow-up examination after completed treatment for conditions other than malignant neVaricose veins of right lower extremity with pain 3 Naun CALDERONT HIEN Mederos. [address] [place] [address], [place], [address], [place]. tel:[phone] Referring Provider: Jon Lr DO, [address] [place] [address], [facility]. tel:[phone] [place] [facility], [address] [place] [address] Dr Valdez 1000Suite [place], [id number], [place] tel:[phone] CVR - [facility] Varicose veins of right lower extremity with other complications 3 Jeremias BOONE RVT, HIEN Yu. [address] [place] [address], [facility] [place], [id number], [place]. tel:[phone] Referring Provider: Jon Lr DO, [address] [place] [address], [address]. tel:[phone] [facility] [facility], [address] [place] [address] Dr Valdez 1000Suite [place], [id number], [place] tel:[phone] CVR - [facility] Chronic venous hypertension (idiopathic) with inflammation of right lower extremity 3 KVNG [place]cd[place] MDT, HIEN Yu. [address] [place] [address], [facility] [place], [id number], [place]. tel:[phone] Referring Provider: Jon Lr DO, [address] [place] [address], [address]. tel:[phone] Office/Outpt E&M Established 25 Mins [facility], [address] [place] [address] Dr Valdez 1000Suite [place], [id number], [place] tel:[phone] CVR [facility] Chronic venous hypertension (idiopathic) with other complications of bilateral lower extremityPhleb itis and thrombophlebit is of unspecified deep vessels of left lower extremity 3 Channing Montgomery. [facility], [place] [address], [place], [place], [id number], [place]. tel:[phone] Referring Provider: Jon Lr DO, [address] [place] [address], [address]. tel:[phone] [place] [facility], [address] [place] [address] Dr Valdez 1000[address] 1000[place], [id number], [place] tel:[phone] CVR - [facility] Chronic venous hypertension (idiopathic) with other complications of left lower extremity 3 Naun Mederos. [address] [place] [address], [place], [address], [place]. tel:[phone] Referring Provider: Jon Lr DO, [address] [place] [address], [address]. tel:[phone] Office/Outpt E&M Established 15 Mins [facility], [address] [place] [address] Dr Valdez 1000[address] 1000[place], [id number], [place] tel:[phone] [facility] Chronic venous hypertension (idiopathic) with other complications of bilateral lower extremityPhleb itis and thrombophlebit is of superficial vessels of left lower extremity 3 Naun Mederos. [facility] [place] [address], [place], [address], [place]. tel:[phone] Referring Provider: Jon Lr DO, [address] [place] [address], [address]. tel:[phone] [facility] [facility] [place], [address] [place] [address] Dr Valdez 1000[address] 1000[place], [id number], [place] tel:[phone] [facility] Phlebitis and thrombophlebit is of superficial vessels of left lower extremity 3 Naun Mederos. [address] [place] [address], [place], [address], . tel:[phone] Referring Provider: Jon Lr DO, [address] [place] [address], [facility]. tel:[phone] Office/Outpt E&M Established 15 Mins [facility], [address] [place] [address] Dr Valdez 1000[address] 1000[place], [id number], [place] tel:[phone] [facility] Chronic venous htn w oth comp of bilateral low extrmPhlebitis and thombophlb of superfic vessels of l low extrem Sep-0 3 Naun BOONE [facility] Med[facility]. [address] [place] [address], [place], [address], . tel:[phone] Referring Provider: Jon Lr DO, [address] [place] [address], [facility]. tel:[phone] [facility], [address] [place] [address] [address] 1000[place], [id number], [place] tel:[phone] [facility] Varicose veins of bilateral lower extremities with pain Sep-0 3 Naun BOONE FACS Gaurav TIFFANIE Mederos. [address] [place] [address], [place], [address], . tel:[phone] Referring Provider: Jon Lr DO, [address] [place] [address], [facility]. tel:[phone] Office/Oupt E&M New Pt 30 Mins [facility], [address] [place] [address] [address] 1000[place], [id number], [place] tel:[phone] CVR [facility] Chronic venous htn w oth comp of bilateral low extrmPhlebitis and thombophlb of superfic vessels of l low extremLocalize d edemaType 2 diabetes mellitus without complicationsR estless legs syndromeEssent ial (primary) hypertensionPr uritus, unspecifiedCra mp and spasm Naun BOONE FACS RVT RPVI Fernanda Mederos. [address] [facility], [address], [place], [address], [place]. tel:[phone] Referring Provider: Jon Lr DO, [address] [facility], [place], [address]. tel:[phone] Family History Family Member Type Diagnosis Age At Onset No Information Payers Payer name Insurance type Covered constitution party ID Authoriza tion(s) Medicare VICK KO [id number] BCBS VICK DOMINGUEZ [id number] Social History Type Description Quantity Date Captured Comments Alcohol Use Details Unknown Caffeine Use Details Unknown Tobacco Use Status Current non-smoker Smoking Status Never Smoker Non-Smoking Tobacco Use Details : No Details Available : No Details Available Sex Female Vital Signs Date / Time: Height Weight [...] Information Instructions Date Instruction Additional Infor mation Compression stocking usage as conservative measure Related [...] to Body mass index (BMI) 30.0-30.9, adult Giving Encouragement [...] other complications of bilateral lower extremity Patient Care Teams Name Effective Dates (start - stop) Status Members No Information
--- OUTSIDE RECORDS SUMMARY | 2024-08-21 04:30 | XMS_ITS ---
Author Organization [facility] Address [address] [place] [address] Care Team Providers Care Automobile Leasing Supervisor Name Role Phone Jon Lr DO Primary Care Provider Meghan Perez [phone] Trejo Encounters Encounter Location Date Provider Diagnosis [address] [address] 08/21/2024 Meghan Casanova Plan Of Treatment Next Appt Details Provider Name:Meghan martinez, 05/09/2025 08:30:00 AM, [address] [place], [address], Progress Notes * Chi SHINOB:1950 ( 74 yo F)Acc No.[id number]:08/21/2024 Progress Notes Patient: Macario GIBBONSil Provider: Danni Casanova DPM :1950 A ge:73 Y S ex:Female Date:08/21/2024 Address:[address] [place], [place] [id number] Pcp:Jon Lr DO Subjective: * Chief Complaints: [...] 0 08/21/2024 Generated for Jamar hammer/Aruna/Shira on: 0 03/10/2025 09:36 AM EDT
--- OUTSIDE RECORDS SUMMARY | 2024-08-22 10:00 | XMS_ITS ---
Author Organization [facility] Address [address] [place] [address] Care Team Providers Care Solar Applications Development Engineer Name Role Phone Jon Lr DO Primary Care Provider UnavailMeghan Cohen Unavailable [phone] Junaid Hitchcock [phone] Medications Medication SIG (Take, Route, Frequency, Duration) [...] 08/22/2024 Encounters Encounter Location Date Provider Diagnosis [address] [address] 08/22/2024 Junaid Hitchcock Plan Of Treatment Next Appt Details Provider Name:Meghan martinez, 05/09/2025 08:30:00 AM, [address] [place], [address], Progress Notes * Chi SHINOB:1950 ( 74 yo F)Acc No.[id number]:08/22/2024 Progress Notes Patient: Jessie MANLEYCHINO Leeann Provider: Constantine Hitchcock D.P.M. :1950 A ge:73 Y S ex:Female Date:08/22/2024 Address:[address] [place] [address], [place], [place] Pcp:Jon Lr DO Subjective: * Chief Complaints: [...] enies. C ardiovascular: Pacemaker d enies. M CAD DETAILER d enies. W PW d enies. C [...] D.P.M. Date: 0 08/22/2024 Generated for Jamar hammer/Aruna/Krissitting on: 0 03/10/2025 09:36 AM EDT
--- OUTSIDE RECORDS SUMMARY | 2025-03-10 09:37 | XMS_ITS | Patient Health Record ---
Author Organization [facility] Address [address] [place] [address] Care Team Providers Care Eco Industrial Development Consultant Name Role Phone Jon Lr DO Primary Care Provider Meghan Perez Unavailable [phone] Junaid Hitchcock Unavailable [phone] Allergies No Known Allergies Results Component Value Reference Range Notes HEMOGLOBIN A1C (GLYCOHEMOGLO BIN) Reviewed date:09/26/2024 03:56:28 PM Interpretation: Performing Lab: Notes/Report: HEMOGLOBIN A1C % (HH) 6.8 Reason For Referral No Information Medications Medication SIG (Take, Route, Frequency, Duration) Notes Start Date End Date Status metFORMIN HCl 750 MG 1 tablet with a jennifer l Orally Once a day Active Fiber Active amLODIPine Besylate 5 MG 1 tablet Orally Once a day Active Vitamin D3 Active Multi For Her 50+ - as directed Orally Active Zoloft 50 MG 1 tablet Orally Once a day Active Lisinopril 20 MG 1 tablet Orally Once a day Active Atorvastatin Calcium 20 MG 1 tablet Oral ly Once a day Active Immunizations Vaccine Route Administration Date Status Comme nts Influenza Unknown 04/12/2024 Administered Social History Tobacco Use: Social History Observation Description Date Details (start date - stop date) Never Smoker NA - NA Tobacco use other than smoking: Question Answer Notes Are you an other tobacco user? No Tobacco Control (Standard) Question Answer Notes Tobacco use: Nonsmoker Additional Findings: Tobacco non-user Current no nsmoker AUDIT-C (Standard) Question Answer Notes Did you have a drink containing alcohol in the p ast year? No Points 0 Interpretation Negative Problems Problem Type SNOMED Code ICD Code Onset Dates Problem Status W/U Status Risk Notes Problem Plantar wart (03679455) Plantar wart (B07.0) Active confirmed Problem Type 2 diabetes mellitus with diabetic polyneuropathy (E11.42) Active confirmed Vital Signs Heart Rate 66 /min 09/26/2024 Blood pressure diastolic 65 mm Hg 02/22/2025 Height 5 ft 2 in in 02/22/2025 Blood pressure systolic 126 mm Hg 02/22/2025 Weight 151 lbs 02/22/2025 BMI 27.62 kg/m2 02/22/2025 Procedures Procedure Date Ordered Date Performed Result Body Sit e 91149-PUAGKYI NAIL, 6 OR MORE 09/26/2024 N/A 59333-YDCQ SKIN LESIONS, OVER 4 09/26/2024 N/A 61059-MKRZSRT NAIL, 6 OR MORE 12/14/2024 N/A 69500-YLWU SKIN LESIONS, 2 TO 4 12/14/2024 N/A 08326-IKTIWBW NAIL, 6 OR MORE 02/22/2025 N/A 98124-Qvre Destruction, 1-14 02/22/2025 N/A 19693-HBUD SKIN LESIONS, 2 TO 4 02/22/2025 N/A Encounters Encounter Location Date Provider Diagnosis [address] [address] 09/26/2024 Junaid Hitchcock Onychomycosis B35.1 and Type 2 diabetes mellitus with other diabetic neurological complication E11.[address] [address] 12/14/2024 Meghan Casanova Type 2 diabetes mellitus with diabetic polyneuropathy E11.42 and Tinea unguium B35.[address] [address] 02/22/2025 Meghan Casanova Type 2 diabetes mellitus with diabetic polyneuropathy E11.42 ; Tinea unguium B35.1 ; Right foot pain M79.671 and Plantar wart B07.[address] [address] 07/13/2024 Meghan Casanova [address] [address] 08/22/2024 Junaid Hitchcock [address] [place] [address] 08/22/2024 Junaid Hitchcock [facility] [address] [address] 12/14/2024 Meghan Casanova Assessments Encounter Date Diagnosis (ICD Code) Assessment Notes Treatment Notes Treatment Clinical Notes Section Notes 09/26/2024 Type 2 diabetes mellitus with other diabetic neurological complication (ICD-10 - E11.49) 09/26/2024 Onychomycosis (ICD-10 - B35.1) 12/14/2024 Type 2 diabetes mellitus with diabetic polyneuropathy (ICD-10 - E11.42) 12/14/2024 Tinea unguium (ICD-10 - B35.1) 02/22/2025 Type 2 diabetes mellitus with diabetic polyneuropathy (ICD-10 - E11.42) 02/22/2025 Tinea unguium (ICD-10 - B35.1) 02/22/2025 Right foot pain (ICD-10 - M79.671) 02/22/2025 Plantar wart (ICD-10 - B07.0) Plan Of Treatment Pending Test Test Name Order Date 61475-UHGQPVA NAIL, 6 OR MORE 09/26/2024 34035-LXUUDCT NAIL, 6 OR MORE 12/14/2024 53796-VPPQWNQ NAIL, 6 OR MORE 02/22/2025 00676-Znam Destruction, 1-14 02/22/2025 60227-QJVS SKIN LESIONS, OVER 4 09/27/19 25 37686-CROG SKIN LESIONS, 2 TO 4 02/23/20 25 13018-BYPH SKIN LESIONS, 2 TO 4 12/15/19 25 Next Appt Details Provider Name:Meghan Andres martinez, 05/09/2025 08:30:00 AM, [address] [place] [address], [address], Insurance Providers Payer Name Payer Address Payer Phone Subscriber Number Group Number Insured Name Patient Relationship to Insured Coverage Start Date Coverage End Date Medicare National [employer]t Sv[employer] [address] [place] [address] [id number] Leeann Shin Self - patient is the insured [employer] [address] [place] [address] [id number] Leeann Shin Self - patient is the insured Medical (General) History Medical History History ICD Code Anxiety Arthritis Back,Hip,and Knee pain Cancer Cataracts Diabetic High Blood Pressure Measles Mumps Chicken pox Bone implants/screws Surgical History Surgery Date(Month/Year) rotator cuff tear repair left and right left knee surgery 2014 right knee surgery 2016
--- OUTSIDE RECORDS SUMMARY | 2025-03-10 09:37 | XMS_ITS | Clinical Summary ---
Author Organization [facility] Address [address] [facility] [address] [place] [address] Phone Care Team Providers Care School Cafeteria Cook Name Role Phone BeJon aguilar Primary Care Provider [phone] Allergies Active Allergy Reactions Criticality Noted Date Comments Bee Pollen Hives 05/13/2015 Hydromorphone GI Upset 09/22/2021 Other reaction(s): patient reports sensitivity to medication - doesnt make her feel good Mixed Vespid Venom Rash Low 09/22/2021 Medications amLODIPine (NORVASC) 5 MG tablet Take 5 mg by mouth daily. 07/30/2021 Active atorvastatin (LIPITOR) 20 MG tablet TAKE 1 TABLET BY MOUTH ONCE DAILY AT BEDTIME FOR 90 DAYS 09/14/2021 Active lisinopril (PRINIVIL,ZESTR IL) 20 MG tablet TAKE 1 TABLET BY MOUTH ONCE A DAY FOR 90 DAY(S) 08/04/2021 Active metFORMIN (GLUCOPHAGE-XR) 750 MG 24 hr tablet TAKE 2 TABLETS BY MOUTH ONCE DAILY X30 DAYS 09/04/2021 Active minocycline HCl (MINOCYCLINE ORAL) Take by mouth. Unsure of dose, says it;s a low dose. Active Active Problems Problem Noted Date Diagnosed Date Varicose veins 09/22/2021 Basal cell carcinoma, forehead Immunizations Immunization Administration Dates Next Due Influenza High-Dose Trivalent Preservative Free IM 03/29/2021 Tdap 03/29/2021 Family History Medical History Relation Comments Prostate cancer Father Diabetes Mother Hypertension Mother Skin cancer Mother Relation Status Comments Father Mother Social History Tobacco Use Types Packs/Day Years Used Date Smoking Tobacco: Never Assessed Tobacco Cessation:Counseling Given: Not Answered Alcohol Use Standard Drinks/Week Comments Not Currently 0 (1 standard drink = 0.6 oz pur e alcohol) Education Answer Date Recorded Are you interested in more education? Not on keila e 11/07/2022 Are you concerned about learning? Not on file 11/07/2022 No 11/07/2022 No 11/07/2022 Digital Access Answer Date Recorded No 12/01/2022 No 12/01/2022 No 12/01/2022 Reliable internet access at home? Not on file 12/01/2022 Device with a working camera? Not on file Comments Unknown Sex and Gender Information Value Date Recorded Sex Assigned at Not on file Legal Sex Female 11:32 AM EDT Gender Identity Not on file Sexual Orientation Not on file Last Filed Vital Signs Vital Sign Reading Time Taken Comments Blood Pressure 156/65 08/10/2022 11:11 AM EST Pulse 71 08/10/2022 11:11 AM EST Temperature 36.8 C (98.3 F) 09/22/2021 11:51 AM EDT Respiratory Rate 20 09/22/2021 11:51 AM EDT Oxygen Saturation 98% 08/10/2022 11:11 AM EST Inhaled Oxygen Concentration - - Weight 77.1 kg (170 lb) 07/29/2022 4:13 PM EST Height 154.3 cm (5' 0.75 ) 07/29/2022 4:13 PM ES T Body Mass Index 32.39 07/29/2022 4:13 PM EST Plan of Treatment Health Maintenance Due Date Last Done Comments CREATININE LEVEL 1950 LIPID PANEL 1948 POTASSIUM LEVEL 1950 DEPRESSION SCREENING 1960 SMOKING Hx and SMOKELESS TOBACCO SCREENING 1961 HEPATITIS C SCREENING 1966 ZOSTER VACCINES (1 of 2) 1998 OSTEOPOROSIS SCREENING INITI AL (ONE-TIME) 2013 RSV VACCINE (1 - 1-dose 75+ series) 10/18/2023 COVID-19 VACCINE (2023-2 5 season) 2024 06/14/2021, 10/04/2020, 09/06/2020 Adult Td,Tdap Booster 03/29/2031 03/29/2021 PNEUMOCOCCAL VACCINES (50+ years) Completed 04/07/2020, 04/19/2018 HEPATITIS A VACCINES Aged Out No long er eligible based on patient's age to complete this topic HIB VACCINES Aged Out No longer eligi ble based on patient's age to complete this topic MENINGOCOCCAL VACCINES (ACWY) Aged Out No longer eligible based on patient's age to complete this topic MENINGOCOCCAL VACCINES (B) Aged Out N o longer eligible based on patient's age to complete this topic Medical Devices Not on file Insurance [employer] SUPPLEMENT MEDICARE PART A & B [employer] SU[employer] MEDICARE PART A & B [employer] SUPP[employer] MEDICARE PART A & B [employer] MED[employer] SUPPLEMENT MEDICARE PART A & B [facility] MEDEX SUPPLEMENT MEDICARE PART A & B [employer] MEDEX SUPPLEMENT MEDICARE PART A & B [employer] MEDEX SUPPLEMENT MEDICARE PART A & B [employer] SUPPLEMENT MEDICARE PART A & B [employer] MEDEX SUPPLEMENT MEDICARE PART A & B Care Teams School Cafeteria Cook Relationship Specialty Start Date End Date Jon Lr DO [address] [place] [address] PCP - General Internal Medicine 07/28/22 Additional Source Comments The information contained in this document represents components of the legal health record. It is not the complete legal health record.[facility]
--- OUTSIDE RECORDS SUMMARY | 2025-03-10 09:37 | XMS_ITS | Encounter Summary ---
Author Organization [facility] Address [address] [facility] [address] [place] [address] Phone Care Team Providers Care Cigar Packer And Shader Name Role Phone Jon Lr DO Primary Care Provider [phone]- [phone] Encounter Details Date Type Department Care Team (Late st Contact Info) Description 08/10/2022 Procedure Pass OR Admitting Dept - Virtual Department [address] [place] [address] Social History Tobacco Use Types Packs/Day Years Used Date Smoking Tobacco: Never Assessed Alcohol Use Standard Drinks/Week Comments Not Currently 0 (1 standard drink = 0.6 oz pur e alcohol) Comments Unknown Sex and Gender Information Value Date Recorded Sex Assigned at Not on file Legal Sex Female 11:32 AM EDT Gender Identity Not on file Sexual Orientation Not on file documented as of this encounter Plan of Treatment Not on file documented as of this encounter Visit Diagnoses Not on filedocumented in this encounter Care Teams Cigar Packer And Shader Relationship Specialty Start Date End Date Jon Lr DO [address] [place] [address] PCP - General Internal Medicine 07/28/22 documented as of this encounter Additional Source Comments The information contained in this document represents components of the legal health record. It is not the complete legal health record.[facility]
--- OUTSIDE RECORDS SUMMARY | 2025-03-10 09:37 | XMS_ITS | Patient Health Record ---
Author Organization [facility] Address [address] [facility] [address] [place] [address] Care Team Providers Care Operator Specialist Communications Name Role Phone TASHA HAMILTON Primary Care Provider Ayla villa AurelioBahman vermaia Unavailable [phone] Allergies Allergen (clinical drug ingredient) Drug/Non Drug Allergy documented on EMR Reaction Allergy Type Onset Date Status bee sting (uncoded) hives Allergy Active Reason For Referral No Information Medications Medication SIG (Take, Route, Frequency, Duration) Notes Start Date End Date Status Lisinopril 5 MG 1 tablet Orally Once a day Active Amlodipine & Diet Manage Prod 2.5 MG Orally Active Atorvastatin Calcium 10 MG 1 tablet Oral ly Once a day Active Problems Problem Type SNOMED Code ICD Code Onset Dates Problem Status W/U Status Risk Notes Problem Diabetes mellitus (13736289) Diabetes mellitus (250) Active confirmed Problem Essential hypertension (88693933) Essential (primary) hypertension (I10) Active confirmed Problem Basal cell carcinoma of skin (216069989) Basal cell carcinoma of skin, unspecified (C44.91) Active confirmed Problem Pure hypercholesterolemia (846860834) Pure hypercholesterolemia (E78.0) Active confirmed Problem Unspecified osteoarthritis, unspecified site (M19.90) Active confirmed Plan Of Treatment No Information Insurance Providers Payer Name Payer Address Payer Phone Subscriber Number Group Number Insured Name Patient Relationship to Insured Coverage Start Date Coverage End Date [facility] [address] [place] [address] [id number] ALISON ROY Self - patient is the insured Medical (General) History Medical History History ICD Code HYPERTENSION DIABETES ARTHRITIS BASAL CELL CARCINOMA Surgical History Surgery Date(Month/Year) R KNEE replacement 2013 R ROTATOR CUFF repair 2005 L ROTATOR CUFF repair 2010 multiple BCC and precancerous areas jeremy beckie large abdominal nevus resection, benign
== END 2025-03-10 09:33 | disposition home or self-care (01) ==
LOC: HO.HMGCLDS 09:32
PROVIDERS: PCP Internal Medicine; Visit Provider Internal Medicine
DX: E55.9 Vitamin D deficiency, unspecified (principal)
CPT/HCPCS: 36415; 82306

== ENCOUNTER 2025-06-25 22:01 | Emergency (ER) | payer MEDICARE, SELFPAY ==
--- OUTSIDE RECORDS SUMMARY | 2024-07-13 03:30 | XMS_ITS ---
Author Organization [facility] Address [address] [place] [address] Care Team Providers Care Bread Jockey Name Role Phone Jon Lr DO Primary Care Provider Meghan Perez Unavailable [phone] Allergies No Known Allergies Medications Medication SIG (Take, Route, Frequency, Duration) Notes Start Date End Date Status Atorvastatin Calcium 20 MG 1 tablet Oral ly Once a day Active Zoloft 50 MG 1 tablet Orally Once a day Active Vitamin D3 Active Multi For Her 50+ - as directed Orally Active Lisinopril 20 MG 1 tablet Orally Once a day Active Fiber Active amLODIPine Besylate 5 MG 1 tablet Orally Once a day Active Encounters Encounter Location Date Provider Diagnosis [address] [address] 07/13/2024 Meghan Casanova Plan Of Treatment Next Appt Details Provider Name:Meghan martinez, 09/05/2025 09:15:00 AM, [address] [place] [address], [phone], Progress Notes * Chi SHINOB:1950 ( 74 yo F)Acc No.[id number]:07/13/2024 Progress Notes Patient: Macario GIBBONSil Provider: Danni Casanova DPM :1950 A ge:73 Y S ex:Female Date:07/13/2024 Address:[address] [place] [address] Mike charlton [id number] Pcp:Jon Lr DO Subjective: * Chief Complaints: * * ROS: G eneral/Constitutional: Nausea d enies. V omiting d enies. H luis manuel Thirst d enies. L oss appetite d enies. C hills d enies. F atigue d enies.?Fever d enies. N ight Sweats d enies. U nexplained weight loss d enies. U nexplained weight gain d enies. H EENTM: Dentures d enies. D izziness d enies. G lasses/contacts d enies. R etinopathy d enies. B lurred/double vision d enies. T MJ?denies. D ischarge/drainage d enies. I mplants d enies. S ore throat d enies. D ental implants d enies. H luna of hearing d enies. D ifficulty chewing/swallowing/speaking d enies. N ose bleeds d enies. S ore mouth d enies. ? R espiratory: On Oxygen d enies. P neumonia/pleurisy d enies.?Bronchitis d enies. E mphysema d enies. C oughing d enies. C ough blood?denies. S hortness of breath d enies. W heezing d enies. C ardiovascular: Pacemaker d enies. M DIGITAL CONTROLS TECHNICAL OFFICER d enies. W PW d enies. C HF d enies. H eart attack d enies. S eptal defect d enies. R apid beat d enies. C hest pain d enies. A trial Fib. d enies. M urmur/Palpitations d enies. G astrointestinal: Hemorrhoids d enies. S tomach/Abdominal pain d enies. D ark blood stool d enies. I rritable bowel d enies. C onstipation d enies. D iarrhea d enies. H ematology: Swelling d enies. C lots d enies. V aricose Veins d enies. B ruising d enies. B leeding problem d enies. G enitourinary: Blood urine d enies. F requent/Painfu/urination/bladder control d enies. K idney stones d enies. I nfection (UTI) d enies. N ephropathy d enies. s ex trans dis (STD) d enies. P rostate d enies. M usculoskeletal: Hammertoes d enies. B unions d enies. B ack Pain d enies. M uscle Cramps/ Resting d enies. M uscle cramps / walking d enies.?Generalized aches and pains d enies. W eakness d enies. I nteg.: Díaz d enies. S cars d enies. C orns/calluses?admits. I ngrown nails d enies. P ainful nails d enies. O pen Sores d enies. R ashes d enies. N eurologic: Difficulty sleeping d enies. B rain disorder d enies. N umbness d enies. B alance trouble d enies. C onfusion d enies. F ainting/blackouts d enies. T ingling d enies. T remors d enies. * Medical History: A nxiety, Arthritis, Back,Hip,and Knee pain, Cancer, Cataracts, Diabetic, High Blood Pressure, Measles, Mumps, Chicken pox, Bone implants/screws. * Surgical History: r otator cuff tear repair left and right 2010/2013, left knee surgery 2014, right knee surgery 2016. * Family History: M other: unknown. F ather: unknown. * Social History: M iscellaneous: Danni castrejon: yes, 3. Marital status: . * Medications: Gaurav dash amLODIPine Besylate 5 MG Tablet 1 tablet Orally Once a day , Taking Fiber , Taking Multi For Her 50+ - Tablet as directed Orally , Taking Vitamin D3 , Taking Zoloft 50 MG Tablet 1 tablet Orally Once a day , Taking Atorvastatin Calcium 20 MG Tablet 1 tablet Orally Once a day , Taking Lisinopril 20 MG Tablet 1 tablet Orally Once a day * Allergies: N .K.D.A. Objective: * Vitals: Assessment: Plan: * Treatment: * Images: * The named appointment provid er may or may not be the originator of this progress note, and it is not deemed complete until electronically signed by the appointment provider. Sign off status: Pending * Provider: Danni Casanova DPM Date: 0 07/13/2024 Generated for Jamar hammer/Aruna/Shira on: 1 08/26/2024 11:01 PM EST
--- OUTSIDE RECORDS SUMMARY | 2024-08-15 05:30 | XMS_ITS | Continuity of Care Document ---
Author Organization [facility] Address [address] [place] [address] Phone Care Team Providers Care Experimental Rocket Sled Mechanic Name Role Phone Jeremias BOONE, ZAC, HIEN, Gigi Unavailable U navailable Allergies, Adverse Reactions, Alerts Substance Reaction Status Criticality No Known Allergies Active No Inform ation Medications Medication Instructions Dosage Dose Quantity Effective Dates (start - stop) Status Indication Fill Status Comments oxycodone 5 mg tablet take 1 tablet by oral route every 4 hours as needed as needed for Pain 5 MG 1 tablet 4 - Active Xarelto 20 mg tablet take 1 tablet by oral route every day with the evening meal 20 MG 1 tablet 3 - Active METFORMIN HCL (unknown strength) Not Availab le - Active AMLODIPINE BESYLATE (unknown strength) Not Availab le - Active ATORVASTATIN CALCIUM (unknown strength) Not Availab le - Active LISINOPRIL (unknown strength) Not Availab le - Active Procedures Procedure Date No Charge For Services Office/Outpt E&M Established 15 Mins Aug Advance Directives Directive Yes / No Effective Date File Name Other Directive No 08/15/2024 N/A WARNING:The information contained in this section is historical and is provided for information only and does not constitute a legal document or any assurance that the information is still accurate. Please verify the information with the barth of the legal document before using it for clinical purposes. Encounters Encounter Description Practice Location Reason(s) For Visit Diagnoses Date Provider Encounter Disposition Office/Outpt E&M Established 15 Mins [facility], [address] [place] [address] Dr Valdez [address] [place], [id number], [place] tel:[phone] [place] Chronic venous hypertension (idiopathic) with other complication s of bilateral lower extremity Feb-0 5 Jeremias BOONE RVT, HIEN Yu. [address] [place] [address], [facility] [place], [id number], [place]. tel:[phone] [facility], [address] [place] [address] Dr Valdez [address] [place], [id number], [place] tel:[phone] [facility] Chronic venous hypertension (idiopathic) with other complication s of bilateral lower extremity Aug-0 5 Jeremias BOONE RVT, HIEN Yu. [address] [place] [address], [facility] [id number], [place]. tel:[phone] [facility], [address] [place] [address] Dr Valdez [address]Su[place]is [place], [id number], [place] tel:[phone] [facility] [place] Encounter for follow-up examination after completed treatment for conditions other than malignant neoplasmVari cose veins of left lower extremity with pain 4 Raina Day. [address] [facility], [address], [place], [place], [id number], [place]. tel:[phone] [facility], [address] [place] [address] Dr Valdez [address] [place], [id number], [place] tel:[phone] [facility] Varicose veins of left lower extremity with other complication s 4 Channing Montgomery. [address] [place] [address] [address], [facility] [place], [id number], [place]. tel:[phone] [facility], [address] [place] [address] Dr Valdez [address] [place], [id number], [place] tel:[phone] [facility] [place] Chronic venous hypertension (idiopathic) with other complication s of bilateral lower extremity 4 Jeremias BOONE RVT, RPVI Robert. [address] [place] [address], [address], [facility] [place], [id number], [place]. tel:[phone] [facility], [address] [place] [address] Dr Valdez [address]SuIn[address]is [place], [id number], [place] tel:[phone] [facility] Chronic venous hypertension (idiopathic) with other complication s of left lower extremity 4 Jeremias BOONE RVT, RPVI Robert. [address] [place] [address], [address], [facility] [place], [id number], [place]. tel:[phone] [facility], [address] [place] [address] Dr Valdez [address]SuIngris [place], [id number], [place] tel:[phone] [facility] Encounter for follow-up examination after completed treatment for conditions other than malignant neoplasmVari cose veins of left lower extremity with pain 4 Jeremias BOONE RVT, RPVI Robert. [address] [place] [address], [facility] [place], [id number], [place]. tel:[phone] [facility], [address] [place] [address] Dr Valdez [address]SuIngris [place], [id number], [place] tel:[phone] [facility] Varicose veins of left lower extremity with inflammation Phlebitis and thrombophleb itis of superficial vessels of left lower extremity 4 Channing Montgomery. [address] [place] [address], [address], [place], [id number], [place]. tel:[phone] [facility], [address] [place] [address] Dr Valdez [address]SuIngris [place], [id number], [place] tel:[phone] [place] Varicose veins of left lower extremity with other complication sType 2 diabetes mellitus without complication sEssential (primary) hypertension 4 Jeremias BOONE RVT, RPVI Robert. [address] [place] [address], [address], [facility] [place], [id number], [place]. tel:[phone] [facility], [address] [place] [address] Dr Valdez [address] [place], [id number], [place] tel:[phone] [facility] Chronic venous hypertension (idiopathic) with other complication s of left lower extremity Apr- 4 Jeremias BOONE RVT, HIEN Yu. [address] [place] [address], [address], [place], [id number], [place]. tel:[phone] [facility], [address] [place] [address] Dr Valdez [address] [place], [id number], [place] tel:[phone] [facility] Encounter for follow-up examination after completed treatment for conditions other than malignant neoplasmPain in left leg Mar- 4 Jeremias BOONE RVT, HIEN Yu. [address] [place] [address], [address], [place], [id number], [place]. tel:[phone] [facility], [address] [place] [address] Dr Valdez [address] [place], [id number], [place] tel:[phone] [facility] Varicose veins of left lower extremity with other complication s Mar- 4 Channing Montgomery. [address] [place] [address], [address], [place], [id number], [place]. tel:[phone] [facility], [address] [place] [address] Dr Valdez [address] [place], [id number], [place] tel:[phone] CVR - [facility] Varicose veins of left lower extremity with other complication sLymphedema, not elsewhere classifiedNe vus, non-neoplast ic 4 Jeremias BOONE RVT, HIEN Yu. [address] [place] [address], [address], [place], [id number], [place]. tel:[phone] [facility], [address] [place] [address] Dr Valdez 1000SuIngris [place], [id number], [place] tel:[phone] [facility] Varicose veins of left lower extremity with painEdema, unspecified 4 Jeremias BOONE RVT, HIEN Yu. [address] [place] [address], [place], [id number], [place]. tel:[phone] [facility], [address] [place] [address] Dr Valdez [address] 1000[place], [id number], [place] tel:[phone] [place] Varicose veins of left lower extremity with painNevus, non-neoplast ic 4 Jeremias BOONE RVT, HIEN Yu. [address] [place] [address], [place], [id number], [place]. tel:[phone] [facility], [address] [place] [address] Dr Valdez [address] [place], [id number], [place] tel:[phone] [facility] Nevus, non-neoplast ic 4 Channing Montgomery. [address] [place] [address], [place], [id number], [place]. tel:[phone] [facility], [address] [place] [address] Dr Valdez [address] 1000[place], [id number], [place] tel:[phone] [facility] Nevus, non-neoplast ic 4 Channing Montgomery. [address] [place] [address], [place], [id number], [place]. tel:[phone] [facility], [address] [place] [address] Dr Valdez [address] 1000[place], [id number], [place] tel:[phone] [facility] [place] Chronic venous hypertension (idiopathic) with other complication s of bilateral lower extremityLym phedema, not elsewhere classifiedNe vus, non-neoplast ic 4 Jeremias BOONE RVT, HIEN Yu. [address] [place] [address], [place], [id number], [place]. tel:[phone] [facility], [address] [place] [address] [facility] [address] [place], [id number], [place] tel:[phone] [place] Chronic venous hypertension (idiopathic) with other complication s of bilateral lower extremityEss ential (primary) hypertension 4 Jeremias BOONE RVT, HIEN Yu. [address] [place] [address], [facility] [place], [id number], [place]. tel:[phone] [facility], [address] [place] [address] Dr [address] [place], [id number], [place] tel:[phone] CVR - [facility] Venous insufficienc y (chronic) (peripheral) Type 2 diabetes mellitus without complication sEssential (primary) hypertension Nevus, non-neoplast ic 4 Jeremias BOONE RVT, RPVI Robert. [address] [place] [address], [facility] [place] [place], [id number], [place]. tel:[phone] [place] [facility], [address] [place] [address] Dr Valdez [address] [place], [id number], [place] tel:[phone] [place] Encounter for follow-up examination after completed treatment for conditions other than malignant neVaricose veins of bilateral lower extremities with pain 4 Jeremias BOONE RVT, RPVI Robert. [address] [place] [address], [place], [id number], [place]. tel:[phone] [facility], [address] [place] [address] Dr Valdez [address] [place], [id number], [place] tel:[phone] CVR - [facility] Varicose veins of left lower extremity with other complication s 4 Channing Montgomery. [facility], [place] [address], [place], [id number], [place]. tel:[phone] [facility], [address] [place] [address] Dr Valdez [address] [place], [id number], [place] tel:[phone] [facility] Encounter for follow-up examination after completed treatment for conditions other than malignant neVaricose veins of left lower extremity with pain 3 Jeremias BOONE RVT, HIEN Yu. [address] [place] [address], [facility] [place] [place], [id number], [place]. tel:[phone] [facility] [address] Valdez [address] 1000[place], [id number], [place] tel:[phone] [facility] Chronic venous hypertension (idiopathic) with inflammation of left lower extremity 3 Jeremias BOONE RVT, HIEN Yu. [address] [place] [address], [place], [id number], [place]. tel:[phone] [facility], [address] [place] [address] Dr Valdez [address] 1000[place], [id number], [place] tel:[phone] [facility] Varicose veins of left lower extremity with other complication s 3 Jeremias BOONE RVT, HIEN Yu. [address] [place] [address], [place], [id number], [place]. tel:[phone] [facility], [address] [place] [address] Dr Valdez [address] 1000[place], [id number], [place] tel:[phone] [facility] Varicose veins of right lower extremity with other complication s 3 India Guerrero. [address] [place] [address] [address], [place], [id number], [place]. tel:[phone] [facility], [address] [place] [address] Dr Valdez [address] [place], [id number], [place] tel:[phone] [facility] Encounter for follow-up examination after completed treatment for conditions other than malignant neVaricose veins of right lower extremity with pain 3 Naun BOONE FACS ZAC Mederos. [address] [facility], [address], [place], [address], [place]. tel:[phone] [facility], [address] [place] [address] Dr Valdez [address] 1000[place], [id number], [place] tel:[phone] [place] Varicose veins of right lower extremity with other complication s 3 Jeremias BOONE RVT, HIEN Yu. [address] [facility], [address], [place], [place], [id number], [place]. tel:[phone] [facility], [address] [place] [address] [address] 1000[place], [id number], [place] tel:[phone] [facility] Chronic venous hypertension (idiopathic) with inflammation of right lower extremity 3 Jeremias BOONE RVT, HIEN Yu. [address] [place] [address], [address], [place], [place], [id number], [place]. tel:[phone] [place] [facility], [address] [place] [address] [address] 1000[place], [id number], [place] tel:[phone] [facility] Chronic venous hypertension (idiopathic) with other complication s of bilateral lower extremityPhl ebitis and thrombophleb itis of unspecified deep vessels of left lower extremity 3 Channing Montgomery. [address] [facility], [address], [place], [place], [id number], [place]. tel:[phone] [facility], [address] [place] [address] [address] 1000[place], [id number], [place] tel:[phone] [facility] Chronic venous hypertension (idiopathic) with other complication s of left lower extremity 3 Naun BOONE FACS ZAC Mederos. [address] [facility], [address], [place], [address], [place]. tel:[phone] [facility], [address] [place] [address] [address] 1000[place], [id number], [place] tel:[phone] [facility] Chronic venous hypertension (idiopathic) with other complication s of bilateral lower extremityPhl ebitis and thrombophleb itis of superficial vessels of left lower extremity Oct- 3 Naun BOONE FACS Gaurav Mederos. [address] [place] [address], [place] [address], [place], [address], [place]. tel:[phone] [facility], [address] [place] [address] [address] 1000[place], [id number], [place] tel:[phone] [facility] Phlebitis and thrombophleb itis of superficial vessels of left lower extremity Apr- 3 Naun Mederos. [address] [place] [address], [place], [address], [place]. tel:[phone] [place] [facility], [address] [place] [address] [address] 1000[place], [id number], [place] tel:[phone] CVR - [facility] Chronic venous htn w oth comp of bilateral low extrmPhlebit is and thombophlb of superfic vessels of l low extrem Sep-0 3 Naun Mederos. [address] [place] [address], [place] [address], [place], [address], [place]. tel:[phone] [facility], [address] [place] [address] [address] 1000[place], [id number], [place] tel:[phone] [facility] Varicose veins of bilateral lower extremities with pain Sep-0 3 Naun Mederos. [address] [place] [address], [place] [address], [place], [address], [place]. tel:[phone] [facility], [address] [place] [address] [address] 1000[place], [id number], [place] tel:[phone] [facility] Chronic venous htn w oth comp of bilateral low extrmPhlebit is and thombophlb of superfic vessels of l low extremLocali zed edemaType 2 diabetes mellitus without complication sRestless legs syndromeEsse ntial (primary) hypertension Pruritus, unspecifiedC ramp and spasm 3 Naun BOONE FACS RVT RPTIFFANIE Mederos. [address] [facility], [address], [place], [address], [place]. tel:[phone] Family History Family Member Type Diagnosis Age At Onset No Information Payers Payer name Insurance type Identifiers Authorization(s) Com [employer] VICK MB ID: [id number] Name: Coverage Status Eligibility Check on: [id number] hip to Subscriber: selfPayer Address: [address], [place], [place], [id number], [employer] Phone: [phone] [facility] VICK DOMINGUEZ r ID: [id number] Name: [employer] Coverage Status Eligibility Check on: [id number] hip to Subscriber: selfPayer Address: [address], [place], [address], [employer] Phone: [phone] Social History Type Description Quantity Date Captured Comments Alcohol Use Details Unknown Caffeine Use Details Unknown Tobacco Use Status Current non-smoker Smoking Status Never Smoker Non-Smoking Tobacco Use Details : No Details Available : No Details Available Sex Female Current Gender Female (finding) Vital Signs Date / Time: Height Weight BMI Pulse Rate Blood Pressure Temperature Respiratory Rate Body Surface Area Head Circumference Head Circ. Percentile Wt./Isidro. Percentile BMI percentile Pulse Ox Inhaled Ox 75.750 kg (167.00 lbs) 30.5 8 kg/m eter (2) 134/82 mm[Hg] Chief Complaint And Reason For Visit No Information Plan Of Treatment Date Type [...] Body mass index (BMI) 30.0-30.9, adult) ordered History Of Present Illness Encounter Date Complaint History Of Prese nt Illness No Information Functional Status Date Description Comments No Information Instructions Date Instruction Additional Infor chirag Compression stocking usage as conservative measure Related to Chronic venous hypertension (idiopathic) with other complications of bilateral lower extremity Patient education booklet given Related to Chronic [...] (BMI) 30.0-30.9, adult Assessments Type Assessment Date assessment Chronic venous hyper tension (idiopathic) with other complications of bilateral lower extremity
--- OUTSIDE RECORDS SUMMARY | 2024-08-21 03:30 | XMS_ITS ---
Author Organization [facility] Address [address] [place] [address] Care Team Providers Care Customer Experience Intern Name Role Phone Jon Lr DO Primary Care Provider Meghan Perez [phone] Trejo Encounters Encounter Location Date Provider Diagnosis [address] [address] 08/21/2024 Meghan Casanova Plan Of Treatment Next Appt Details Provider Name:Meghan martinez, 09/05/2025 09:15:00 AM, [address] [place], [address], Progress Notes * Chi SHINOB:1950 ( 74 yo F)Acc No.[id number]:08/21/2024 Progress Notes Patient: Macario GIBBONSil Provider: Danni Casanova DPM :1950 A ge:73 Y S ex:Female Date:08/21/2024 Address:[address] [place], [place] [id number] Pcp:Jon Lr DO Subjective: * Chief Complaints: * [address] Trejo. * Medical History: Objective: * Vitals: Assessment: Plan: * Treatment: * Images: * The named appointment provid er may or may not be the originator of this progress note, and it is not deemed complete until electronically signed by the appointment provider. Sign off status: Pending * Provider: Danni Casanova, EMILIA Date: 0 08/21/2024 Generated for Jamar hammer/Aruna/Shira on: 1 08/26/2024 11:00 PM EST
--- OUTSIDE RECORDS SUMMARY | 2024-08-22 09:00 | XMS_ITS ---
Author Organization [facility] Address [address] [place] [address] Care Team Providers Care Buffing Line Set Up Worker Name Role Phone Jon Lr DO Primary Care Provider UnavailMeghan Cohen Unavailable [phone] Junaid Hitchcock [phone] Medications Medication SIG (Take, Route, Frequency, Duration) Notes Start Date End Date Status Lisinopril 20 MG 1 tablet Orally Once a day Unknown Atorvastatin Calcium 20 MG 1 tablet Oral ly Once a day Unknown Multi For Her 50+ - as directed Orally Unknown Fiber Unknown amLODIPine Besylate 5 MG 1 tablet Orally Once a day Unknown Zoloft 50 MG 1 tablet Orally Once a day Unknown Vitamin D3 Unknown Vital Signs Height 5 ft 2 in in 08/22/2024 Weight 150 lbs 08/22/2024 BMI 27.43 kg/m2 08/22/2024 Encounters Encounter Location Date Provider Diagnosis [address] [address] 08/22/2024 Junaid Hitchcock Plan Of Treatment Next Appt Details Provider Name:Meghan martinez, 09/05/2025 09:15:00 AM, [address] [place], [address], Progress Notes * Chi SHINOB:1950 ( 74 yo F)Acc No.[id number]:08/22/2024 Progress Notes Patient: Jessie MANLEYCHINO Leeann Provider: Constantine Hitchcock D.P.M. :1950 A ge:73 Y S ex:Female Date:08/22/2024 Address:[address] [place] [address], [place], [id number] Pcp:Jon Lr DO Subjective: * Chief Complaints: [...] enies. C ardiovascular: Pacemaker d enies. M DRUG ABUSE PROGRAM COORDINATOR d enies. W PW d enies. C [...] d enies. S cars d enies. C orns/calluses?denies. I ngrown nails d enies. P ainful [...] otator cuff tear repair left and right , left knee surgery 2014, right knee surgery 2016. * Family History: M other: unknown. F ather: unknown. * Social History: M iscellaneous: Danni wooden: yes, 3. Marital status: . * Medications: U nknown amLODIPine Besylate 5 MG Tablet 1 tablet Orally Once a day , Unknown Fiber , Unknown Multi For Her 50+ - Tablet as directed Orally , Unknown Vitamin D3 , Unknown Zoloft 50 MG Tablet 1 tablet Orally Once a day , Unknown Atorvastatin Calcium 20 MG Tablet 1 tablet Orally Once a day , Unknown Lisinopril 20 MG Tablet 1 tablet Orally Once a day Objective: * Vitals: H t: 5 ft 2 in, Wt:150, BMI:27.43, Ht-cm: 157.48 cm, Wt-k.04 kg. Assessment: Plan: * Treatment: * Images: * The named appointment provid er may or may not be the originator of this progress note, and it is not deemed complete until electronically signed by the appointment provider. Sign off status: Pending * Provider: Constantine Hitchcock D.P.M. Date: 0 08/22/2024 Generated for Jamar hammer/Aruna/Shira on: 1 08/26/2024 11:02 PM EST
--- OUTSIDE RECORDS SUMMARY | 2025-05-09 03:30 | XMS_ITS ---
Author Organization [facility] Address [address] [place] [address] Care Team Providers Care Tile Erector Name Role Phone Jon Lr DO Primary Care Provider Meghan Perez [phone] Medications Medication SIG (Take, Route, Frequency, Duration) Notes Start Date End Date Status Lisinopril 20 MG 1 tablet Orally Once a day Active Atorvastatin Calcium 20 MG 1 tablet Oral ly Once a day Active Multi For Her 50+ - as directed Orally Active Zoloft 50 MG 1 tablet Orally Once a day Active Vitamin D3 Active Fiber Active amLODIPine Besylate 5 MG 1 tablet Orally Once a day Active metFORMIN HCl 750 MG 1 tablet with a jennifer l Orally Once a day Active Encounters Encounter Location Date Provider Diagnosis [address] [address] 05/09/2025 Meghan Casanova Plan Of Treatment Next Appt Details Provider Name:Meghan martinez, 09/05/2025 09:15:00 AM, [address] [place] [address], [address], Progress Notes * Chi SHINOB:1950 ( 74 yo F)Acc No.[id number]:05/09/2025 Progress Note Patient: Macario GIBBONSil Provider: Danni Casanova DPM :1950 A ge:74 Y S ex:Female Date:05/09/2025 Address:[address] [place] [address] [place], [place] Pcp:Jon Lr DO Subjective: * Chief Complaints: * * Medical History: A nxiety, Arthritis, Back,Hip,and Knee pain, Cancer, Cataracts, Diabetic, High Blood Pressure, Measles, Mumps, Chicken pox, Bone implants/screws. * Medications: T aking metFORMIN HCl 750 MG Tablet 1 tablet with a meal Orally Once a day , Taking amLODIPine Besylate 5 MG Tablet 1 tablet [...] Orally Once a day Objective: * Vitals: Assessment: Plan: * Treatment: * Images: * The named appointment provid er may or may not be the originator of this progress note, and it is not deemed complete until electronically signed by the appointment provider. Sign off status: Pending * Provider: Danni Casanova DPM Date: Generated for Jamar hammer/Aruna/Shira on: 08/26/2024 11:01 PM EST
--- OUTSIDE RECORDS SUMMARY | 2025-06-18 05:00 | XMS_ITS ---
Author Organization [facility] Address [address] [place] [address] Care Team Providers Care Helper Chicken Farm Name Role Phone Jon Lr DO Primary Care Provider Meghan Perez [phone] Medications Medication SIG (Take, Route, Frequency, Duration) Notes Start Date End Date Status Vitamin D3 Active Multi For Her 50+ - as directed Orally Active Zoloft 50 MG 1 tablet Orally Once a day Active Lisinopril 20 MG 1 tablet Orally Once a day Active Atorvastatin Calcium 20 MG 1 tablet Oral ly Once a day Active metFORMIN HCl 750 MG 1 tablet with a jennifer l Orally Once a day Active Fiber Active amLODIPine Besylate 5 MG 1 tablet Orally Once a day Active Encounters Encounter Location Date Provider Diagnosis [address] [address] 06/18/2025 Meghan Casanova Plan Of Treatment Next Appt Details Provider Name:Meghan martinez, 09/05/2025 09:15:00 AM, [address] [place], [address], Progress Notes * Chi SHINOB:1950 ( 74 yo F)Acc No.[id number]:06/18/2025 Progress Note Patient: Macario GIBBONSil Provider: Danni Casanova DPM :1950 A ge:74 Y S ex:Female Date:06/18/2025 Address:[address] [place] [address] [place], [place] Pcp:Jon Lr DO Subjective: * Chief Complaints: * * HPI: A t Risk footcare: Pt States Last PCP Visit: D ate: 0 08/29/2024 * Medical History: A nxiety, Arthritis, Back,Hip,and [...] Pending * Provider: Danni Casanova DPM Date: 08/19/2024 Generated for Jamar hammer/Aruna/Shira on: 08/26/2024 11:01 PM EST History and Physical Notes * HPI (History of Present Illness) Category Sub-Category Detail Notes Category Not es At Risk footcare Pt States Last PCP Visit: Date:: 08/29/19 25
--- OUTSIDE RECORDS SUMMARY | 2025-06-20 23:59 | XMS_ITS | Continuity of Care Document ---
Author Organization [facility] n[facility] Address [address] [place] [address] [address] [place] [address]- Care Team Providers Care Day Camp Counselor Name Role Phone Jon Lr DO Primary Care [id number] Date[facility]s): [facility] - [facility]20/25 [facility] [address] [place] [address] Attending Physician: Tanvir Valdes MD Referring Physician: Jon Lr DO Encounter Type: Office Visit Allergies, Adverse Reactions, Alerts Substance Criticality Severity Reaction Reaction Severity Status Dilaudid patient reports sensitivity to medication - doesnt make her feel good Active Bee Stings full body rash Acti ve Functional Status Functional Status Assessment Assessment Assessment Component Result Effecti ve Date Disability status [CUBS] I'm Thriving - no identified disability 06/13/25 Are you blind, or do you have serious difficulty seeing, even when wearing glasses Unknown 06/13/25 Are you deaf, or do you have serious difficulty hearing Unknown 06/13/25 Do you have serious difficulty walking or climbing stairs Unknown 06/13/25 Because of a physica l, mental, or emotional condition, do you have serious difficulty concentrating, remembering, or making decisions Unknown 06/13/25 Because of a physica l, mental, or emotional condition, do you have difficulty doing errands alone such as visiting a physician's office or shopping Unknown 06/13/25 Do you need any audrey tional assistance or accommodations during your visit Unknown 06/13/25 Do you have difficul ty dressing or bathing Unknown 06/13/25 Difficulty Reading O r Writing Unknown 06/13/25 Difficulty communica ting in usual language Unknown 06/13/25 Medications amlodipine 5 mg oral tablet By Mouth, Daily in AM, 0 Refills, Maintenance, 01/18/14 9:56:05 AM EDT, Tablet Start Date: 01/18/14 Status: Ordered Medication Dispense Status: Completed Total Allowed Fills: 1 Fills Dispensed: 0 atorvastatin 20 mg oral tablet 1 tablet = 20 mg, By Mouth, Daily in AM, 0 Refills, Maintenance, 01/18/14 9:56:11 AM EDT, Tablet Start Date: 01/18/14 Status: Ordered Medication Dispense Status: Completed Total Allowed Fills: 1 Fills Dispensed: 0 Compression Stockings See Instructions, # 2 each, Maintenance, surgical, thigh high length 20-30 mm Hg, 03/19/20 2:15:00 PMEDT, Supply Start Date: 03/19/20 Status: Ordered Medication Dispense Status: Completed Quantity: 2.0 Unit: each Total Allowed Fills: 1 Fills Dispensed: 0 lisinopril 20 mg oral tablet 20 mg, 1, tablet, By Mouth, Daily in AM, # 30 tablet, Refills 0, Maintenance, 12/20/17 8:55:03 AM EDT Start Date: 12/20/17 Status: Ordered Medication Dispense Status: Completed Quantity: 30.0 Unit: tablet Total Allowed Fills: 1 Fills Dispensed: 0 metFORMIN 750 mg oral tablet, extended release 2 tablet = 1,500 mg, By Mouth, Daily in AM, # 30 tablet, 0 Refills, Maintenance, 12/20/17 8:55:21 AMEDT, ER Tablet Start Date: 12/20/17 Status: Ordered Medication Dispense Status: Completed Quantity: 30.0 Unit: tablet Total Allowed Fills: 1 Fills Dispensed: 0 Multivitamin 1 tablet, By Mouth, Daily in AM, 0 Refills, Maintenance, 12/20/17 8:56:51 AM EDT Start Date: 12/20/17 Status: Ordered Medication Dispense Status: Completed Total Allowed Fills: 1 Fills Dispensed: 0 sertraline 25 mg oral tablet 0 Refills, Maintenance, 01/02/25 8:47:00 AM EDT, Partial fill upon patient request if the prescription is for a schedule II opioid drug. Start Date: 01/02/25 Status: Ordered Medication Dispense Status: Completed Total Allowed Fills: 1 Fills Dispensed: 0 Vitamin D3 = 400 International_Units, By Mouth, Daily in AM, 0 Refills, Maintenance, 12/20/17 8:56:32 AM EDT Start Date: 12/20/17 Status: Ordered Medication Dispense Status: Completed Total Allowed Fills: 1 Fills Dispensed: 0 Problem List Condition Confirmation Course Effective Dates Status H ealth Status Informant Hyperlipidemia Confirmed Active Hypertension Confirmed Active Superficial thrombosis of leg Confirmed Active Non-insulin dependent type 2 diabetes mellitus Confirmed Active Varicose veins Confirmed Active Chronic venous hypertension (idiopathic) with other complications of right lower extremity Confirmed Active Chronic venous hypertension (idiopathic) with other complications of left lower extremity Confirmed Active Vital Signs Most recent to oldest [Reference Range]: 1 Height 157.48 cm (06/13/25 10:09 AM) Weight 71.3 kg (06/13/25 10:09 AM) Body Mass Index [18.5-24.99 kg/m2] 28.75 kg/m2 *H* (06/13/25 10:09 AM) Social History Social History Type Response Smoking Status Never (less than 100 in lifetime) entered on: 12/14/24 Sexual Orientation Self described orien tation: ; Straight or heterosexual Sex Sex Representation Female (finding) Patient Care team information Care Team Personnel Name: Ailyn Patiño RN Position: [facility] RN Member Role: Primary Care Nurse Name: Jon Lr DO Position: [facility] Physician - Primary Care Member Role: PCP Address: [address] [place] [address] Telecom: Care Team Related Persons Name: KAYODE ROY Name: ASCENCION ROY Insurance Providers Guarantor name: ALISON ROY Health Plan Information #: 1 Payer: MEDICARE B Payer Identifier: NA Member Number: [id number] Group Number: NA Subscriber Identifier: [id number] Relationship to Subscriber: self Coverage Type: NA Coverage Verification Date: NA Telecom: NA Address: Health Plan Information #: 2 Payer: MEDEX SECONDARY ONLY Payer Identifier: NA Member Number: [id number] Group Number: NA Subscriber Identifier: [id number] Relationship to Subscriber: self Coverage Type: Medicare Other Coverage Verification Date: NA Telecom: NA Address: NA
--- OUTSIDE RECORDS SUMMARY | 2025-06-21 05:00 | XMS_ITS ---
Author Organization [facility] Address [address] [place] [address] Care Team Providers Care White Kid Buffer Name Role Phone Jon Lr DO Primary Care Provider Meghan Perez Unavailable [phone] Allergies No Known Allergies REASON FOR VISIT At Risk Footcare, Wart(s) Medications Medication SIG (Take, Route, Frequency, Duration) Notes Start Date End Date Status Lisinopril 20 MG 1 tablet Orally Once a day Active Atorvastatin Calcium 20 MG 1 tablet Oral ly Once a day Active Zoloft 50 MG 1 tablet Orally Once a day Active Vitamin D3 Active Multi For Her 50+ - as directed Orally Active Fiber Active amLODIPine Besylate 5 MG 1 tablet Orally Once a day Active metFORMIN HCl 750 MG 1 tablet with a jennifer l Orally Once a day Active Social History Tobacco Use: Social History Observation [...] ast year? No Points 0 Interpretation Negative Vital Signs Height 5 ft 2 in in 06/21/2025 Weight 155 lbs 06/21/2025 BMI 28.35 kg/m2 06/21/2025 Blood pressure systolic 123 mm Hg 06/21/20 25 Blood pressure diastolic 70 mm Hg 025 Procedures Procedure Date Ordered Date Performed Result Body Sit e 81913-BBHSDKT NAIL, 6 OR MORE 06/21/2025 N/A 35895-Mtbr Destruction, 1-14 06/21/2025 N/A 56935-UKMS SKIN LESIONS, 2 TO 4 06/21/2025 N/A Encounters Encounter Location Date Provider Diagnosis [facility] [address] [address] 06/21/2025 Meghan Casanova Type 2 diabetes mellitus with diabetic polyneuropathy E11.42 ; Tinea unguium B35.1 ; Right foot pain M79.671 and Plantar wart B07.0 Assessments Encounter Date Diagnosis (ICD Code) Assessment Notes Treatment Notes Treatment Clinical Notes Section Notes 06/21/2025 Type 2 diabetes mellitus with diabetic polyneuropathy (ICD-10 - E11.42) 06/21/2025 Tinea unguium (ICD-10 - B35.1) 06/21/2025 Right foot pain (ICD-10 - M79.671) 06/21/2025 Plantar wart (ICD-10 - B07.0) Plan Of Treatment Pending Test Test Name Order Date [id number] NAIL, 6 OR MORE 06/21/2025 20039-Jnyq Destruction, 1-14 06/21/2025 11539-WSXQ SKIN LESIONS, 2 TO 4 06/21/20 Next Appt Details Follow Up: 3 Months, Reason: Provider Name:Meghan martinez, 09/05/2025 09:15:00 AM, [address] [place] [address], [phone], Procedure Notes * Category Sub-Category Detail Notes Wart Treatment Procedure Verruca, as desc ribed in exam, were debrided to pin-point bleeding margins with sterile 15 surgical blade, silver nitrate chemocautery applied, recomm. immune-boosting meds such as zinc, recomm. follow up with topical chemosurgical agents, Pt defers any other forms of tx - 37315 Debride Nail 6-10 Nail debridement Due to the cl inical pathology outlined in the exam findings, performance of this nail treatment is medically necessary as its management by an unskilled/untrained nonprofessional would put this patients foot and overall health at risk. Therefore, debridement to affected nail(s), as described in exam ( TA, T1, T2, T3, T4, T5, T6, T7, T8, T9, ), was performed exclusively by the physician of record to reduce/remove overall nail length, girth, thickness, subungual debris, and necrotic tissue, by manual and/or electrical means through the use of a nail nipper and/or dremel-type level vial grinder, to a more viable healthy nail plate or bed tissue 6-10 nails in total. Silver nitrate was used for any petechial bleeding as necessary. Definitive antifungal treatment options, both pharmaceutical and surgical, have been reviewed and discussed with the patient. The patient solely prefers the use of intermittent/as needed professional debridement services for their nail condition and understands the need for additional periodic treatments to maintain effectiveness in symptomatic relief - 85941 Keratoma Treatment Parring or Cutting o f Benign Hyperkeratotic Lesion(s) (-56) 2-4 Lesions - Due to the at risk nature of the patients medical condition as documented in the exam findings, performance of this keratoderma treatment is medically necessary as its management by an unskilled/untrained nonprofessional would put this patients foot and overall health at risk. Therefore, the benign hyperkeratotic lesions, (2) in total, locations as stated and described in the exam ( plantar heels B/L), were pared, and/or cut utilizing a sterile 15 blade, tissue nippers, and/or power dremel instrumentation by the physician of record - 60023 Progress Notes * HSIN, ChiOB:1950 ( 74 yo F)Acc No.[id number]:06/21/2025 Progress Note Patient: Leeann GIBBONS Provider: Danni Casanova DPM :1950 A ge:74 Y S ex:Female Date:06/21/2025 Address:[address] [place], [place] [id number] Pcp:Jon Lr DO Subjective: * Chief Complaints: * A t Risk FootcareWart(s) * HPI: A t Risk footcare: Pt States Last PCP Visit: D ate: 0 08/29/2024 S kin problems: Pt States PCP Visit: D ate: 0 08/29/2024 * ROS: G eneral/Constitutional: Nausea d enies. [...] enies. C ardiovascular: Pacemaker d enies. M C4 PLANNER d enies. W PW d enies. C [...] B rain disorder d enies. N umbness a dmits. B alance trouble d enies. C onfusion d enies. F ainting/blackouts d enies. T ingling d enies. T remors d enies. * Medical History: * Surgical History: r otator cuff tear repair left and right le knee surgery 2014[facility] knee surgery 2017[facility] surgery 06/05plastic surgery 01/03 * Hospitalization/Major Diagno stic Procedure: D enies Past Hospitalization * Family History: M other: unknown. F ather: unknown. * Social History: T obacco Use: T obacco use other than smoking A re you an other tobacco user? N o Tobacco Control (Standard) T obacco use: N onsmoker A dditional Findings: Tobacco non-user C urrent nonsmoker D rugs/Alcohol: D rugs H ave you used drugs other than those for medical reasons in the past 12 months? N o M iscellaneous: C affeine: yes, frequency:, 3-5 cups per day. Children: yes, 3. Exercise: yes, gym. Marital status: . 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 D rug/Alcohol: A DYLON-C (Standard) D id you have a drink containing alcohol in the past year? N o P oints 0 I nterpretation N egative * Medications: T akingmetFORMIN HCl 750 MG Tablet 1 tablet with a meal Orally Once a day amLODIPine Besylate 5 MG Tablet 1 tablet Orally Once a day Fiber Multi For Her 50+ - Tablet as directed Orally Vitamin D3 Zoloft 50 MG Tablet 1 tablet Orally Once a day Atorvastatin Calcium 20 MG Tablet 1 tablet Orally Once a day Lisinopril 20 MG Tablet 1 tablet Orally Once a day Medication List reviewed and reconciled with the patientTaking metFORMIN HCl 750 MG Tablet 1 tablet with a meal Orally Once a day Taking amLODIPine Besylate 5 MG Tablet 1 tablet Orally Once a day Taking Fiber Taking Multi For Her 50+ - Tablet as directed Orally Taking Vitamin D3 Taking Zoloft 50 MG Tablet 1 tablet Orally Once a day Taking Atorvastatin Calcium 20 MG Tablet 1 tablet Orally Once a day Taking Lisinopril 20 MG Tablet 1 tablet Orally Once a day Medication List reviewed and reconciled with the patient * Allergies: N .K.D.A.yes[Allergies Verified] Objective: * Vitals: H t: 5 ft 2 in, Wt: 155, BMI: 28.35, Shoe size: 8, BP: 123/70 mm Hg, BS: not taken, Ht-cm: 157.48 cm, Wt-k.31 kg. * P ast Orders: L ab:HEMOGLOBIN A1C (GLYCOHEMOGLOBIN) (Order Date - 07/25/2024) (Collection Date & Time - 07/25/2024 03:56 PM) Value Reference Range HEMOGLOBIN A1C % (HH) 6.8 * Examination: O phthalmology Referral: DIABETES EYE EXAM P rocedure Performed: N o Kathleen larry Exam not performed: N o reason specified N eurological: SENSORY: Neurological exam demonstrates, reduced light touch sensation, reduced sharp/dull pin prick discrimination , B/L, 5.07 monofilament test performed at plantar aspects of 5 varied sites per foot shows sensation, reduced , B/L. N ails: NAILS are: E longated, overgrown, dystrophic, lytic, greater than 3mm thick, discolored and friable with crumbly malodorous subungual debris, TA, T1, T2, T3, T4, T5, T6, T7, T8, T9. D ermatologic: SKIN FINDINGS: S kin exam reveals Keratotic lesion(s) located at, Plantar heels B/L. VERRUCA: R eveals a Single , multi-loculated , mosaic-patterned, round, raised, flat- topped, petechial bleeding papule(s), with cauliflower appearance and interruption of skin lines, pain to lateral compression, and size estimated at _4 mm diameter, plantar forefoot, RIGHT. V ascular: DP PULSES (B): 2 /4, B/L. O rthopedic: MUSCLE STRENGTH: 5 /5 all groups in a symmetrical fashion, B/L. G eneral Examination: GENERAL APPEARANCE: Praveen jackson a pleasant, alert, well nourished, well-developed, well hydrated individual, who demonstrates proper attention to hygiene/body habitus, and is in no acute distress, Pt serves as own historian for office visit today. ORIENTED: p kathion, place, and time. Assessment: * Assessment: 1. T ype 2 diabetes mellitus with diabetic polyneuropathy - E11.42 (Primary) 2 . T inea unguium - B35.1 3 . R ight foot pain - M79.671 4 .?Plantar wart - B07.0 Plan: * Treatment: 2. P bernice solot P rocedure: [id number]-[id number] Destruction, 1-14 * Procedures: D ebride Nail 6-10: Nail debridement D ue to the clinical pathology outlined in the exam findings, performance of this nail treatment is medically necessary as its management by an unskilled/untrained nonprofessional would put this patients foot and overall health at risk. Therefore, debridement to affected nail(s), as described in exam ( TA, T1, T2, T3, T4, T5, T6, T7, T8, T9, ), was performed exclusively by the physician of record to reduce/remove overall nail length, girth, thickness, subungual debris, and necrotic tissue, by manual and/or electrical means through the use of a nail nipper and/or dremel-type level vial grinder, to a more viable healthy nail plate or bed tissue 6-10 nails in total. Silver nitrate was used for any petechial bleeding as necessary. Definitive antifungal treatment options, both pharmaceutical and surgical, have been reviewed and discussed with the patient. The patient solely prefers the use of intermittent/as needed professional debridement services for their nail condition and understands the need for additional periodic treatments to maintain effectiveness in symptomatic relief - 24385. K eratoma Treatment: Parring or Cutting of Benign Hyperkeratotic Lesion(s) ( -56) 2-4 Lesions - Due to the at risk nature of the patients medical condition as documented in the exam findings, performance of this keratoderma treatment is medically necessary as its management by an unskilled/untrained nonprofessional would put this patients foot and overall health at risk. Therefore, the benign hyperkeratotic lesions, (2) in total, locations as stated and described in the exam ( plantar heels B/L), were pared, and/or cut utilizing a sterile 15 blade, tissue nippers, and/or power dremel instrumentation by the physician of record - 15771. W art Treatment: Procedure V erruca, as described in exam, were debrided to pin-point bleeding margins with sterile 15 surgical blade, silver nitrate chemocautery applied, recomm. immune-boosting meds such as zinc, recomm. follow up with topical chemosurgical agents, Pt defers any other forms of tx - 77171. * Procedure Codes: 1 1721 DEBRIDE NAIL, 6 OR MORE, Modifiers: XS 88167 Wart Destruction, 1-14, Modifiers: XS 24283 TRIM SKIN LESIONS, 2 TO 4, Modifiers: XS * Follow Up: 3 Months * Images: * Sign off status: Completed true * Provider: Danni Casanova DPM Date: 08/22/2024 Generated for Jamar hammer/Aruna/Shira on: 08/26/2024 11:00 PM EST History and Physical Notes * HPI (History of Present Illness) Category Sub-Category Detail Notes Category Not es Skin problems Pt States PCP Visit: Date:: 08/29/2024 At Risk footcare Pt States Last PCP Visit: Date:: 08/29/19 25 Examination Category Sub-Category Detail Notes Category Not es Neurological SENSORY: Neurological exa m demonstrates, reduced light touch sensation, reduced sharp/dull pin prick discrimination , B/L, 5.07 monofilament test performed at plantar aspects of 5 varied sites per foot shows sensation, reduced , B/L Dermatologic SKIN FINDINGS: Skin exam reveal s Keratotic lesion(s) located at, Plantar heels B/L VERRUCA: Reveals a Single , m ulti-loculated , mosaic-patterned, round, raised, flat-topped, petechial bleeding papule(s), with cauliflower appearance and interruption of skin lines, pain to lateral compression, and size estimated at _4 mm diameter, plantar forefoot, RIGHT Orthopedic MUSCLE STRENGTH: 5/5 all groups in a symm etrical fashion, B/L General Examination GENERAL APPEARANCE: Reveals a pleasant, alert, well nourished, well-developed, well hydrated individual, who demonstrates proper attention to hygiene/body habitus, and is in no acute distress, Pt serves as own historian for office visit today ORIENTED: person, place, and t dru Ophthalmology Referral DIABETES EYE EXAM Procedure Perform ed:: No Eye Exam not performed:: No reason speci fied Vascular DP PULSES (B): 2/4, B/L Nails NAILS are: Elongated, overg rown, dystrophic, lytic, greater than 3mm thick, discolored and friable with crumbly malodorous subungual debris, TA, T1, T2, T3, T4, T5, T6, T7, T8, T9
[2025-06-25 22:03] VITALS: BP 176/74; PULSE 77; RESP 20; TEMP 36.8; O2SAT 97; BMI 28.3
[2025-06-25 22:44] LABS: IDNOW Serial# 08D9AD1C; Strep A Nucleic Acid Negative (Negative)
[2025-06-25 22:45] LABS: COVID-19 Test Negative (Negative); IDNOW Serial# 58CA691E
[2025-06-25 22:47] LABS: Influenza B2 Negative (Negative)
--- OUTSIDE RECORDS SUMMARY | 2025-06-25 23:00 | XMS_ITS | Clinical Summary ---
Author Organization [facility] Address [address] [place] [address] Care Team Providers Care Chain Carrier Name Role Phone Unavailable Primary Care Provider Unavailabl e Social History Tobacco Use Types Packs/Day Years Used Date Smoking Tobacco: Never Assessed Comments Unknown Sex and Gender Information Value Date Recorded Sex Assigned at Not on file Legal Sex Female 2:24 PM EDT Gender Identity Not on file Sexual Orientation Not on file Plan of Treatment Upcoming Encounters Date Type Department Care Team (Late st Contact Info) Description 08/24/2025 9:30 AM EST Clinical Support [facility] [place] [address] [facility], [place] [address] Darwin Pagan MD [address] [place] [address] [phone] Daria Meza Au.D [address] [place] [address] [phone] Health Maintenance Due Date Last Done Comments Advance Care Planning 1950 Hepatitis C Virus Screening 1950 DTaP/Tdap/Td Vaccines (1 - Tdap) 10/18/1967 Pneumococcal Vaccines 50+ (1 of 1 - PCV) 1998 Zoster (Shingles) Vaccine (1 of 2) 1998 DXA Bone Density (Females,Ages 65 and older) 2013 RSV Vaccine 50 years and older and Patients (1 - 1-dose 75+ series) 10/18/2023 Influenza Vaccine 02/09/2025 03/29/2021, 03/29/2021, 03/29/2021 COVID-19 Vaccine ( - 2024-2 6 season) 2025 Hepatitis B Vaccines Aged Out No long er eligible based on patient's age to complete this topic Insurance MEDICARE PART A & B
--- OUTSIDE RECORDS SUMMARY | 2025-06-25 23:01 | XMS_ITS | Encounter Summary ---
Author Organization [facility] Address [address] [facility] [address] [place] [address] Phone Care Team Providers Care Automotive Lot Attendant Name Role Phone Jon Lr DO Primary Care Provider [phone] Encounter Details Date Type Department Care Team (Late st Contact Info) Description 08/10/2022 Procedure Pass OR Admitting Dept - Virtual Department [address] [place] [address] Social History Tobacco Use Types Packs/Day Years [...] on filedocumented in this encounter Care Teams Automotive Lot Attendant Relationship Specialty Start Date End Date Jon Lr DO [address] [place] [address] PCP - General Internal Medicine 07/28/22 documented as of this encounter Additional Source Comments The information contained in this document represents components of the legal health record. It is not the complete legal health record.[facility]
--- OUTSIDE RECORDS SUMMARY | 2025-06-25 23:02 | XMS_ITS | Patient Health Record ---
Author Organization [facility] Address [address] [place] [address] Care Team Providers Care Instrumentation And Controls Designer Name Role Phone Jon Lr DO Primary Care Provider Meghan Perez Unavailable [phone] Junaid Hitchcock Unavailable [phone] Allergies No Known Allergies Results Component Value [...] jennifer l Orally Once a day Active Immunizations Vaccine Route [...] W/U Status Risk Notes Problem Plantar wart (60279446) Plantar wart (B07.0) Active confirmed Problem Polyneuropathy due to type 2 diabetes mellitus (170157160) Type 2 diabetes mellitus with diabetic polyneuropathy (E11.42) Active confirmed Vital Signs Heart Rate 66 /min 09/26/2024 Blood pressure diastolic 70 mm Hg 06/21/2025 Height 5 ft 2 in in 06/21/2025 Blood pressure systolic 123 mm Hg 06/21/2025 Weight 155 lbs 06/21/2025 BMI 28.35 kg/m2 06/21/2025 Procedures Procedure Date Ordered Date Performed Result Body Sit e 24607-ZGYYXZI NAIL, 6 OR MORE 09/26/2024 N/A 50725-ZOQL SKIN LESIONS, OVER 4 09/26/2024 N/A 91802-IQXVSOS NAIL, 6 OR MORE 12/14/2024 N/A 52105-LGAS SKIN LESIONS, 2 TO 4 12/14/2024 N/A 80906-ZYLTBFL NAIL, 6 OR MORE 02/22/2025 N/A 01853-Dqdk Destruction, 1-14 02/22/2025 N/A 13260-RHWK SKIN LESIONS, 2 TO 4 02/22/2025 N/A 95507-AKRSDCC NAIL, 6 OR MORE 06/21/2025 N/A 19714-Obtt Destruction, 1-14 06/21/2025 N/A 49344-MMCG SKIN LESIONS, 2 TO 4 06/21/2025 N/A Encounters Encounter Location Date Provider Diagnosis [address] [address] 09/26/2024 Junaid Hitchcock Onychomycosis B35.1 and Type 2 diabetes mellitus with other diabetic neurological complication E11.[address] [address] 12/14/2024 Meghan Casanova Type 2 diabetes mellitus with diabetic polyneuropathy E11.42 and Tinea unguium B35.[address] [address] 02/22/2025 Meghan Casanova Type 2 diabetes mellitus with diabetic polyneuropathy E11.42 ; Tinea unguium B35.1 ; Right foot pain M79.671 and Plantar wart B07.0 [facility] [address] [address] 06/21/2025 Meghan Casanova Type 2 diabetes mellitus with diabetic polyneuropathy E11.42 ; Tinea unguium B35.1 ; Right foot pain M79.671 and Plantar wart B07.[address] [facility] [address] 07/13/2024 Meghan Casanova [facility] [address] [address] 08/22/2024 Junaid Hitchcock [facility] [address] 08/22/2024 Junaid Hitchcock [facility] [address] [address] 12/14/2024 Meghan Casanova [address] [address] 05/09/2025 Meghan Casanova [facility] [address] 06/18/2025 Meghan Casanova [facility] [address] 06/20/2025 Meghan Casanova Assessments Encounter Date Diagnosis (ICD [...] E11.42) 02/22/2025 Tinea unguium (ICD-10 - B35.1) 06/21/2025 Type 2 diabetes mellitus with diabetic polyneuropathy (ICD-10 - E11.42) 06/21/2025 Tinea unguium (ICD-10 - B35.1) 06/21/2025 Right foot pain (ICD-10 - M79.671) 02/22/2025 Right foot pain (ICD-10 - M79.671) 06/21/2025 Plantar wart (ICD-10 - B07.0) 02/22/2025 Plantar wart (ICD-10 - B07.0) Plan Of Treatment Pending Test Test Name Order Date 42419-NAEKGXU NAIL, 6 OR MORE 09/26/2024 16592-SAPTCQM NAIL, 6 OR MORE 12/14/2024 87837-FXOIJRE NAIL, 6 OR MORE 02/22/2025 61467-WTYZLNT NAIL, 6 OR MORE 06/21/2025 93366-Alxp Destruction, 1-06/21/2025 83542-Owlz Destruction, 1-02/22/2025 07047-HGHN SKIN LESIONS, OVER 4 09/27/19 89784-BQVZ SKIN LESIONS, 2 TO 4 06/21/20 71425-VIXT SKIN LESIONS, 2 TO 4 02/23/20 72124-MMQE SKIN LESIONS, 2 TO 4 12/15/19 Next Appt Details Provider Name:Meghan Campos juan, 09/05/2025 09:15:00 AM, [address], [place], [address], Insurance Providers Payer Name Payer Address Payer Phone Subscriber Number Group Number Insured Name Patient Relationship to Insured Coverage Start Date Coverage End Date Medicare National Govt Sv[employer] [address] [place] [address] [phone] [id number] Leeann Shin Self - patient is the insured [employer] [address] [place] [address] [phone] [id number] Leeann Shin Self - patient is the insured Medical (General) History Medical History History ICD Code Anxiety Arthritis Back,Hip,and Knee pain Cancer Cataracts Diabetic High Blood Pressure Measles Mumps Chicken pox Bone implants/screws Surgical History Surgery Date(Month/Year) rotator cuff tear repair left and right left knee surgery 2014 right knee surgery 2016 mohs surgery 06/05 plastic surgery 01/03
--- OUTSIDE RECORDS SUMMARY | 2025-06-25 23:02 | XMS_ITS | Clinical Summary ---
Author Organization [facility] Address [address] [place] [address] Phone Care Team Providers Care Forest Fire Prevention Manager Name Role Phone BeJon aguilar Primary Care Provider [phone] Allergies Active Allergy Reactions Criticality Noted Date [...] VACCINES (1 of 2) 1998 OSTEOPOROSIS SCREENING INITIAL (ONE-TIME) 2013 RSV VACCINE (1 - 1-dose 75+ series) 10/18/2023 INFLUENZA VACCINE (#1) 2025 , 03/29/2021, 04/07/2020, Additional history exists COVID-19 VACCINE ( season) 2025 06/14/2021, 10/04/2020, 09/06/2020 Adult Td,Tdap Booster 03/29/2031 [...] topic Medical Devices Not on file Insurance [employer] SU[employer] MEDICARE PART A & B [employer] SU[employer]MENT MEDICARE PART A & B [employer] SU[employer]LEMENT MEDICARE PART A & B MEDICARE PART A & B Member Subscriber Plan / Payer (Ef fective 2020-Present) Name:Leeann Shin Member ID:[id number] Relation to Subscriber:Self Name:Leeann Shin Subscriber ID:[id number] Payer ID:[id number] Group ID:Not on file Type:Medicare Address: [employer] [address] [place] [address] [facility] MEDEX SUPPLEMENT MEDICARE PART A & B Airstone CROSS MEDEX SUPPLEMENT MEDICARE PART A & B [employer] MED[employer] SUPPLEMENT MEDICARE PART A & B [employer] MED[employer] SUPPLEMENT MEDICARE PART A & B [employer] MED[employer] SUPPLEMENT MEDICARE PART A & B Care Teams Forest Fire Prevention Manager Relationship Specialty Start Date End Date Jon Lr DO [address] [place] [address] PCP - General Internal Medicine 07/28/22 Additional Source Comments The information contained in this document represents components of the legal health record. It is not the complete legal health record.[facility]
--- OUTSIDE RECORDS SUMMARY | 2025-06-25 23:02 | XMS_ITS ---
Author Name [facility] Organization Unknown Care Team Organization Name Specialty Phone Email Start Date End [facility] 04/13/2025
--- OUTSIDE RECORDS SUMMARY | 2025-06-25 23:03 | XMS_ITS | Patient Health Record ---
Author Organization [facility] Address [address] [place] [address] Care Team Providers Care Poison Information Specialist Name Role Phone TASHA HAMILTON Primary Care Provider Ayla villa AurelioBahman vermaia Unavailable [phone] Allergies Allergen (clinical drug ingredient) Drug/Non Drug [...] W/U Status Risk Notes Problem Diabetes mellitus (78059809) Diabetes mellitus (250) Active confirmed Problem Essential hypertension (47480839) Essential (primary) hypertension (I10) Active confirmed Problem Basal cell carcinoma of skin (240337707) Basal cell carcinoma of skin, unspecified (C44.91) Active confirmed Problem Pure hypercholesterolemia (850380095) Pure hypercholesterolemia (E78.0) Active confirmed Problem Osteoarthritis (557363644) Unspecified osteoarthritis, unspecified site (M19.90) Active confirmed Plan Of Treatment No Information Insurance Providers Payer Name Payer Address Payer Phone Subscriber Number Group Number Insured Name Patient Relationship to Insured Coverage Start Date Coverage End Date [facility] [address] [place] [id number] ALISON ROY Self - patient is the insured Medical (General) History Medical History History ICD Code HYPERTENSION DIABETES ARTHRITIS BASAL CELL CARCINOMA Surgical History Surgery Date(Month/Year) R KNEE replacement 2013 R ROTATOR CUFF repair 2005 L ROTATOR CUFF repair 2010 multiple BCC and precancerous areas jeremy beckie large abdominal nevus resection, benign
--- NOTE | 2025-06-25 23:17 | ED.URI ---
HPI - URI/Sore Throat General Chief Complaint: Upper Respiratory Symptoms Stated Complaint: FLU LIKE SYMPTOMS Time Seen by Provider: 06/25/25 22:38 Source: patient and family Mode of arrival: ambulatory Limitations: no limitations History of Present Illness ED Provider: Dr. Valentina Cunningham HPI Narrative: 74-year-old female with a history of hypertension, hyperlipidemia, diabetes, chronic lymphedema presenting with flu-like symptoms ongoing for the last 24 hours. Patient has been exposed to her grandson who tested positive for influenza a yesterday. She describes nausea without vomiting, body aches and pains, subjective chills but no measured temperature, several episodes of nonbloody diarrhea as well as generalized malaise and fatigue. To the denies vision changes, chest pain or difficulty breathing, urinary complaints. She has not had her flu shot this year. Related Data Home Medications ?Medication ?Instructions ?Recorded ?Confirmed amlodipine 5 mg tablet 5 mg PO DAILY 09/25/22 09/25/22 atorvastatin 20 mg tablet 20 mg PO DAILY 09/25/22 09/25/22 lisinopril 20 mg tablet 20 mg PO DAILY 09/25/22 09/25/22 metformin 750 mg tablet,extended 1,500 mg PO DAILY 09/25/22 09/25/22 release 24 hr sertraline 25 mg tablet 50 mg PO DAILY 06/15/24 Previous Rx's ?Medication ?Instructions ?Recorded prednisone 20 mg tablet 40 mg (2 x 20 mg) PO DAILY 3 days 06/15/24 #6 tabs ondansetron 4 mg disintegrating 4 mg PO Q8H PRN nausea and 06/25/25 tablet vomiting #10 tabs oseltamivir 75 mg capsule (Tamiflu) 75 mg PO BID 5 days #10 caps 06/25/25 Allergies Allergy/AdvReac Type Severity Reaction Status Date / Time bee pollen (bee stings) Allergy Hives Verified 06/25/25 22:04 Review of Systems Review of Systems: As per HPI, full review of systems performed and negative but for the above mentioned pertinent positives and negatives. [facility] Social History Social History Patient Tobacco Use Status: Never used Tobacco Advance Directives: Yes Advance Directives Information Provided: No Advance Directives on File: No Physical Exam Exam: Exam: GENERAL: Ill-Appearing, appears uncomfortable. SKIN: Normal skin color for ethnicity, warm, dry, no rashes noted. HEENT:? Normocephalic, atraumatic, no stridor, dry mucous membranes, dentition intact, EOMI. NECK: Soft, supple, full ROM, midline structures nontender, no step-offs, no deformities, no lymphadenopathy. CHEST: Heart regular tachycardia, no murmurs, symmetric chest rise and fall. PULMONARY: Clear to auscultation bilaterally, diminished at the bases, no labored breathing, no wheezes/rhales/rhonchi. ABDOMINAL: Soft, nondistended, nontender, positive bowel sounds in all quadrants. : Deferred. MUSCULOSKELETAL: Normal tone, full range of motion, no deformities, no peripheral edema. NEURO: Alert and oriented x3, CN II through XII intact, equal strength and sensation bilateral upper and lower extremities, no focal neurologic deficits.? PSYCHIATRIC: Flat affect, fluid speech, good eye contact and appropriate demeanor. Vital Signs: Vital Signs: Last Vital Signs Temp 98.2 F 06/25/25 22:03 Pulse 77 06/25/25 22:03 Resp 20 06/25/25 22:03 BP 176/74 H 06/25/25 22:03 Pulse Ox 97 06/25/25 22:03 O2 Del Method Room Air 06/25/25 22:03 BMI result Body Mass Index 28.3 Medical Decision Making Medical Decision Making [facility] Narrative: Patient presents today with flu-like symptoms. Positive sick contacts. Differential diagnosis includes influenza, coronavirus, pneumonia, upper respiratory infection, among others. Most importantly, this patient is not in any acute respiratory distress. They have normal oxygen levels at room air. I have discussed Tamiflu treatment for presumed influenza despite a negative PCR test and other home therapies that will help the patient and have discussed strict return precautions. Instructed that symptoms may worsen and the patient might need re-evaluation or even hospitalization in the future, but did not show signs of this at the time of discharge. Differential Diagnosis Differential Diagnoses: The differential diagnosis associated with the presentation includes (as above) Admission/Observation Consideration of admission/observation: Escalation of care including admission/observation considered Lab Data [facility] Lab Attestation statement: I reviewed the patient's lab results. Labs: Lab Results 06/25/25 Range/Units 22:18 COVID-19 ([place]) Negative (Negative) COVID-19 Clin Com See Note Influenza Type A ([facility]) Negative (Negative) Influenza Type B ([facility]) Negative (Negative) Influenza A & B Note See Note S. pyogenes GrpA [facility] Negative (Negative) Independent Historian Clinical information obtained from an independent historian. History obtained from or confirmed by: Other (daughter) External Record Review External record reviewed: Inpatient record Prescription Management I considered prescription management with: Antiviral and Other (Antiemetic) Chronic Conditions Patient?s care impacted by: Diabetes and Hypertension Discharge Plan Discharge Clinical Impression: Influenza-like illness Patient Disposition: Home, Self-Care Additional Instructions: You have been diagnosed with influenza. While your initial rapid flu swab is negative, that does not mean that you do not have influenza. Your symptoms are consistent with this illness and you will be treated as such. Take Tamiflu for the next 5 days as prescribed until the course is completed. Do not stop this medication early if you start to feel better. Use Zofran as needed for nausea and vomiting. Try to drink plenty of water over the next several days. If you do not improve with treatment or if your symptoms get worse, you should return to the emergency department immediately. Call 911 for any medical emergency including difficulty breathing or severe chest pain. Prescriptions: New ondansetron 4 mg tablet,disintegrating 4 mg PO Q8H PRN (Reason: nausea and vomiting) Qty: 10 0RF oseltamivir [Tamiflu] 75 mg capsule 75 mg PO BID 5 Days Qty: 10 0RF No Action metformin 750 mg tablet extended release 24 hr 1,500 mg PO DAILY lisinopril 20 mg tablet 20 mg PO DAILY amlodipine 5 mg tablet 5 mg PO DAILY atorvastatin 20 mg tablet 20 mg PO DAILY sertraline 25 mg tablet 50 mg PO DAILY prednisone 20 mg tablet 40 mg PO DAILY 3 Days Qty: 6 0RF Print Language: Sudanese
[2025-06-25 23:37] VITALS: BP 138/68; PULSE 79; RESP 18; TEMP 36.9; O2SAT 98
== END 2025-06-25 23:42 | disposition home or self-care (01) ==
PROVIDERS: Emergency Medicine; Emergency Provider Emergency Medicine; PCP Internal Medicine
DX: J11.1 Influenza due to unidentified influenza virus with other respiratory manifestations (principal); R19.7 Diarrhea, unspecified; R68.83 Chills (without fever); R53.83 Other fatigue; Z03.818 Encounter for observation for suspected exposure to other biological agents ruled out; I10 Essential (primary) hypertension; E78.5 Hyperlipidemia, unspecified; E11.9 Type 2 diabetes mellitus without complications
CPT/HCPCS: 87502; 87635; 87651; 99282; 99283